=== PATIENT | female | born 1935 | race Caucasian/White ===

== ENCOUNTER 2018-10-01 07:56 | Inpatient (IN) | payer OTHER ==
[~2018-10-01] VITALS: Ht 157.5 cm; Wt 48.5 kg
[~2018-10-01 07:56] MED LIST: ACET325 PO; ALBU90OI INH; Amlodipine-Ben1 EAC1 PO; Bactrim Ds Tab1 EACH PO; CHOLESTEROL MED; HTN MED; HYDR1TAB94 PO; LEVFLO500 PO; LOPE2C PO; LOVA40 PO; Prednisone20 MG PO; RANI150 PO; Sulfamethoxazo1 EAC4 PO; Zofran Odt4 MG SL
[2018-10-01 09:12] LABS: BASOPHILS ABSOLUTE AUTO 0.06 K/mm3 (0.00-0.23); BASOPHILS PERCENT AUTO 0 % (0-2); EOSINOPHILS PERCENT AUTO 0 % (0-6); Hematocrit 43.4 % (33.0-51.0); Hemoglobin 13.5 g/dL (11.5-16.0); IMMATURE GRAN ABSOLUTE AUTO 0.08 K/mm3 (0.00-0.10); IMMATURE GRAN PERCENT AUTO 1 % (0-1); LYMPHOCYTES ABSOLUTE AUTO 0.74 K/mm3 (0.84-5.20); LYMPHOCYTES PERCENT AUTO 5 % (21-46); MONOCYTES ABSOLUTE AUTO 1.36 K/mm3 (0.16-1.47); MONOCYTES PERCENT AUTO 9 % (4-13); Mean Corpuscular HGB 28.5 pg (26.0-34.0); Mean Corpuscular HGB Conc 31.1 g/dL (31.5-36.5); Mean Corpuscular Volume 92 fL (80-100); Mean Platelet Volume 10.6 fL (9.1-12.4); NEUTROPHILS ABSOLUTE AUTO 12.97 K/mm3 (1.96-9.15); NEUTROPHILS PERCENT AUTO 85 % (41-73); Platelet Count 359 K/mm3 (150-400); RDW Coefficient Variation 16.4 % (11.7-14.2); RDW Standard Deviation 55.5 fL (35.1-46.3); Red Blood Cell Count 4.74 M/mm3 (3.80-5.20); White Blood Cell Count 15.21 K/mm3 (4.00-11.30)
[2018-10-01 09:34] LABS: Troponin I <0.015 ng/mL (0.000-0.040)
[2018-10-01 09:50] LABS: Alanine Aminotransfer (ALT/SGP 25 U/L (12-78); Albumin, Blood 2.9 g/dL (3.4-5.0); Albumin/Globulin Ratio 0.6 (0.8-1.8); Alk Phos 236 U/L (50-136); Anion Gap 8 mmol/L (6-16); Aspartate Aminotrans (AST/SGOT 27 U/L (12-37); Bilirubin, Total 0.9 mg/dL (0.1-1.0); Blood Urea Nitrogen 14 mg/dL (8-24); Bun/Creatinine Ratio 30.2 (12.0-20.0); CO2, Blood 26 mmol/L (21-32); Chloride, Blood 106 mmol/L (98-108); Creatinine, Blood 0.46 mg/dL (0.40-1.00); Globulin, Blood 4.9 g/dL (2.2-4.0); Glomerular Filtration Rate >60 (60-); Glucose, Blood 124 mg/dL (70-99); Potassium, Blood 3.5 mmol/L (3.5-5.5); Sodium, Blood 140 mmol/L (136-145); Total Protein, Blood 7.8 g/dL (6.4-8.2)
[2018-10-01] MEDS ORDERED: LATANOPROST2.5 ML BOTHEYES (09:56)
[2018-10-01] MEDS ORDERED: Ventolin/Prove6.7 GM INH (09:57)
--- NOTE | 2018-10-01 15:12 | NUR ---
Pt was sitting up in bed and appeared well taken care of. 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 Pt moved to [place] to get away from the busyness of the town. Pt has no family. Pt lives at [facility], but is hoping to move to a place of her own soon. Verbal prayer was offered on behalf of the pt. Pt was affiliated with a [place] [employer]. Pt verbalized gratitude for the PC support. I will remain available.
--- NOTE | 2018-10-01 16:19 | NUR ---
PT ARRIVED TO THE MEDICAL FLOOR FROM THE ER AROUND 1150 VIA WHEELCHAIR, A/OX3, PLEASANT AND COOPERATIVE, THE PT IS UP IND, THE PT IS MILDLY SOB WITH ACTIVITY, PT IS ON 2L/MIN O2 AT THIS TIME, APPEARS TO BE BREATHING EASILY AT REST, PT ORIENTED TO THE ROOM LAYOUT AND CALL SYSTEM, THE CALL LIGHT IS IN REACH BED IN LOW POSITION, WILL CONTINUE TO MONITOR AND ASSESS FOR CHANGES, CONTINUOS BIOX ON
[2018-10-02 05:18] LABS: BASOPHILS ABSOLUTE AUTO 0.05 K/mm3 (0.00-0.23); BASOPHILS PERCENT AUTO 0 % (0-2); EOSINOPHILS PERCENT AUTO 0 % (0-6); Hematocrit 39.7 % (33.0-51.0); IMMATURE GRAN ABSOLUTE AUTO 0.16 K/mm3 (0.00-0.10); IMMATURE GRAN PERCENT AUTO 1 % (0-1); LYMPHOCYTES PERCENT AUTO 8 % (21-46); MONOCYTES ABSOLUTE AUTO 0.91 K/mm3 (0.16-1.47); MONOCYTES PERCENT AUTO 5 % (4-13); Mean Corpuscular HGB 27.9 pg (26.0-34.0); Mean Corpuscular HGB Conc 30.2 g/dL (31.5-36.5); Mean Corpuscular Volume 92 fL (80-100); Mean Platelet Volume 10.8 fL (9.1-12.4); NEUTROPHILS ABSOLUTE AUTO 14.74 K/mm3 (1.96-9.15); NEUTROPHILS PERCENT AUTO 86 % (41-73); Platelet Count 352 K/mm3 (150-400); RDW Coefficient Variation 16.3 % (11.7-14.2); RDW Standard Deviation 55.1 fL (35.1-46.3); White Blood Cell Count 17.16 K/mm3 (4.00-11.30)
[2018-10-02 06:15] LABS: Alanine Aminotransfer (ALT/SGP 28 U/L (12-78); Albumin, Blood 2.3 g/dL (3.4-5.0); Albumin/Globulin Ratio 0.5 (0.8-1.8); Alk Phos 235 U/L (50-136); Anion Gap 7 mmol/L (6-16); Aspartate Aminotrans (AST/SGOT 27 U/L (12-37); Bilirubin, Total 0.4 mg/dL (0.1-1.0); Blood Urea Nitrogen 23 mg/dL (8-24); Bun/Creatinine Ratio 44.5 (12.0-20.0); CO2, Blood 27 mmol/L (21-32); Calcium, Blood 8.6 mg/dL (8.5-10.1); Chloride, Blood 109 mmol/L (98-108); Creatinine, Blood 0.52 mg/dL (0.40-1.00); Globulin, Blood 4.5 g/dL (2.2-4.0); Glomerular Filtration Rate >60 (60-); Glucose, Blood 93 mg/dL (70-99); Magnesium, Blood 2.2 mg/dL (1.6-2.4); Potassium, Blood 4.3 mmol/L (3.5-5.5); Sodium, Blood 143 mmol/L (136-145); Total Protein, Blood 6.8 g/dL (6.4-8.2)
--- NOTE | 2018-10-02 07:34 | NUR ---
SHIFT SUMMARY: PT A&O X 4, INDEPENDENT IN ROOM. ON 2L VIA NC AND CONT PULSE OXIMETRY. NORMALLY, PT IS ON RA. PT DENIES SOB, HOWEVER O2 DROPS DOWN INTO THE 80s WITHOUT 02 THERAPY. ON 2L VIA NC, PT IS SATTING IN THE 90s. PT HAVIUNG THICK, WHITE SECRETIONS c A FREQUENT LOOSE, HARSH COUGH. PT DENIES PAIN, VSS. LACTIC ACID WNL THIS AM, NO ACUTE SIGNS OF SEPSIS ASSESSED. WILL CONT TO MONITOR AND PROVIDE CARE UNTIL PRESUMED BY ONCOMING RN.
--- NOTE | 2018-10-02 18:26 | NUR ---
SHIFT SUMMARY: NO ACUTE CHANGES TO REPORT THIS SHIFT. PT A&O; [place] CALM AND COOEPRATIVE WITH CARE. MEDICATED FOR PAIN PER EMAR. 2L O2 VIA NC; NO O2 USE AT HOME; LUNGS COARSE & WHEEZY. IV & PO ABX CONTINUING. WCTM.
--- NOTE | 2018-10-03 06:37 | NUR ---
*SHIFT SUMMARY* PATIENT IS ALERT AND ORIENTED. PATIENT SLEPT THROUGHOUT MOST OF THE NIGHT. PATIENT USES CALL LIGHT APPROPRIATELY. PATIENT IS CONTINENT, PATIENT IS A SBA TO BATHROOM. PATIENT USES OXYGEN AT 2L. PATIENT TAKES PILLS WHOLE WITH WATER. PATIENT HAS NO NEW CHANGES TO STATUS. BED ALARM ON, BED LOWERED AND LOCKED WITH CALL LIGHT WITHIN REACH.
--- NOTE | 2018-10-03 08:13 | NUR ---
CODE STATUS: DNR VERIFIED WITH AV KUNZ RN. PT AGREES WITH THIS. PURPLE BAND PLACED ON LEFT WRIST.
--- NOTE | 2018-10-03 12:42 | NUR ---
[facility]: PER DR. GUNN'S REQUEST AND PATIENT'S PERMISSION, THIS RN CALLED AND UPDATED STAFF AT THE [facility] THAT PT IS STILL IN THE HOSPITAL BUT PLANS TO RETURN WHEN RELEASED. STAFF AT [facility] VERBALIZED UNDERSTANDING.
--- NOTE | 2018-10-03 13:42 | NUR ---
PARTIAL MEDICATION: PATIENT RECEIVED PARTIAL DOSE OF 10/02 AZITHROMYCIN IV. DUE TO MULTIPLE DISTAL OCCLUSIONS CAUSED BY PATIENT REPEATEDLY BENDING ARM AND CAUSING DISTAL OCCLUSIONS, FULL DOSE OF MEDICATION WAS NOT ADMINISTERED. PATIENT EDUCATED ON NEED TO KEEP ARM STRAIGHT WHILE IV MEDICATIONS ARE INFUSING.
--- NOTE | 2018-10-03 17:07 | NUR ---
SHIFT SUMMARY: A&O X4. UP WITH SBA. COUGH PRODUCTIVE OF THICK, GREEN SPUTUM. SATS IN THE MID 90'S ON 1 LPM VIA NC. CONTINUING TO WEAN O2. PT HOPEFUL FOR DISCHARGE BACK TO [facility] TOMORROW. VSS. CALL LIGHT IN REACH. WILL CONTINUE TO MONITOR AND REPORT TO ONCOMING RN.
--- NOTE | 2018-10-04 05:30 | NUR ---
*SHIFT SUMMARY* PATIENT IS ALERT AND ORIENTED. PATIENT IS SBA TO BATHROOM. PATIENT USES CALL LIGHT APPROPRIATELY. PATIENT WAS ON ROOM AIR THROUGHOUT MOST OF THE NIGHT. PATIENT WAS PLACED ON 1L OF OXYGEN TO KEEP SATS ABOVE 92 ORDERED. PATIENT SLEPT MOST OF THE NIGHT. NO NEW CHANGES IN PATIENTS CONDITION. CALL LIGHT WITHIN REACH, BED LOWERED AND LOCKED WITH ALARM ON.
--- NOTE | 2018-10-04 19:38 | NUR ---
SHIFT SUMMARY: NO ACUTE CHANGES TO REPORT THIS SHIFT. PT A&O; [place]; CALM AND COOPERATIVE WITH CARE. MEDICATED FOR PAIN PER EMAR. PATIENT SLEEPING T/O SHIFT. LUNGS COARSE; 1L O2 IN PLACE - NO O2 USE AT BASELINE. IV ABX CONTINUING. REPORT GIVEN TO ONCOMING RN.
[2018-10-05 05:13] LABS: BASOPHILS ABSOLUTE AUTO 0.09 K/mm3 (0.00-0.23); BASOPHILS PERCENT AUTO 1 % (0-2); EOSINOPHILS PERCENT AUTO 0 % (0-6); Hematocrit 41.8 % (33.0-51.0); Hemoglobin 13.1 g/dL (11.5-16.0); IMMATURE GRAN ABSOLUTE AUTO 0.31 K/mm3 (0.00-0.10); IMMATURE GRAN PERCENT AUTO 4 % (0-1); LYMPHOCYTES PERCENT AUTO 21 % (21-46); MONOCYTES ABSOLUTE AUTO 0.84 K/mm3 (0.16-1.47); MONOCYTES PERCENT AUTO 10 % (4-13); Mean Corpuscular HGB 27.9 pg (26.0-34.0); Mean Corpuscular HGB Conc 31.3 g/dL (31.5-36.5); NEUTROPHILS ABSOLUTE AUTO 5.75 K/mm3 (1.96-9.15); NEUTROPHILS PERCENT AUTO 65 % (41-73); Platelet Count 355 K/mm3 (150-400); RDW Coefficient Variation 15.5 % (11.7-14.2); RDW Standard Deviation 50.4 fL (35.1-46.3); White Blood Cell Count 8.79 K/mm3 (4.00-11.30)
[2018-10-05 05:14] LABS: Mean Corpuscular Volume 89 fL (80-100)
[2018-10-05 05:37] LABS: Alanine Aminotransfer (ALT/SGP 22 U/L (12-78); Albumin, Blood 2.4 g/dL (3.4-5.0); Albumin/Globulin Ratio 0.5 (0.8-1.8); Alk Phos 190 U/L (50-136); Anion Gap 6 mmol/L (6-16); Aspartate Aminotrans (AST/SGOT 16 U/L (12-37); Bilirubin, Total 0.4 mg/dL (0.1-1.0); Blood Urea Nitrogen 10 mg/dL (8-24); Bun/Creatinine Ratio 22.6 (12.0-20.0); CO2, Blood 28 mmol/L (21-32); Calcium, Blood 8.6 mg/dL (8.5-10.1); Chloride, Blood 103 mmol/L (98-108); Creatinine, Blood 0.44 mg/dL (0.40-1.00); Globulin, Blood 4.5 g/dL (2.2-4.0); Glomerular Filtration Rate >60 (60-); Glucose, Blood 101 mg/dL (70-99); Potassium, Blood 4.2 mmol/L (3.5-5.5); Sodium, Blood 137 mmol/L (136-145); Total Protein, Blood 6.9 g/dL (6.4-8.2)
--- NOTE | 2018-10-05 06:35 | NUR ---
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 PT has cont pulse oximetry and maintained sats most of night on 1 l or room air but did desat to 85% at rest and oxygen was required to get sat to 90%. She is homeless and lives at homeless senior living during night. has no family listed appears to lack siocial support. Flat affect, up in room independent but has hx of falls. very hard of hearing but able to communicate. has scheduled ultram as well as prn and no prn requests. immigration services officer referral made due to homeless status.
--- NOTE | 2018-10-05 16:56 | NUR ---
SHIFT SUMMARY PATIENT A&O X4, INDEPENDENT IN THE ROOM. OXYGEN ON 1L NC SATS REMAINING <90%. RESP E/U, PATIENT DENIES ANY SOB OR NAUSEA. HAD SOME COMPLAINTS OF LOWER BACK PAIN, RN MEDICATED X2 WITH SCHEDULED TRAMADOL 50 MG. PATIENT SLEPT ON AND OFF THROUGHOUT THE SHIFT. HAS HAD A CHRONIC COUGH WITH SOME WHITE SPUTUM PRODUCTION. BED IS IN THE LOWEST POSITION, CALL LIGHT WITHIN REACH. NO ACUTE CHANGES. RN WILL CONTINUE TO MONITOR.
--- NOTE | 2018-10-06 04:02 | NUR ---
SHIFT SUMMARY PT SLEEPING, RESTING QUIETLY DURING SHIFT REPORT, WITH TV ON. PT WOKE EASILY FOR CARE. PLEASANT AND CO-OP. DENIED NEEDS. PER SHIFT REPORT, PT WAS LIVING AT HOMELESS JAIL. IS UP INDEPENDANTLY NEEDED TO BTHRM. ADMITTED FOR PNM; IN CONTACT ISOLATION FOR HX MRSA IN SPUTUM AND WOUND. LUNGS T/O COARSE THRU OUT. DECLINED SCHEDULED ULTRAM AT HS, "I DON'T HAVE ANY PAIN". CALL LT IN REACH.
[2018-10-06] MEDS ORDERED: GUAI600T33 PO (14:11)
[2018-10-06] MEDS ORDERED: CHOL10002 PO (14:13)
[2018-10-06] MEDS ORDERED: AZIT500 PO (14:14)
[2018-10-06] MEDS ORDERED: CLINDAMYCIN PO (14:21)
--- NOTE | 2018-10-06 14:59 | NUR ---
DISCHARGE PT A/O X4, PLEASANT AFFECT THIS AM, STATE FEELING IMPROVED, HOPEFUL TO GO HOME. STATE CONTINUING COUGH & SOME SOB W EXERTION. LUNGS VERY DECREASED HOWEVER CLEAR. HR IRREG @ X'S TOMMY 50'S-80'S. DR GUNN IN TO SEEHER STATE SHE MAY GO HOME TODAY, PLACE ORDERS. RT UP FOR HOME O2 EVAL, STATE SHE WILL NOT NEED OXYGEN. SOC SERV IN TO SEE PT R/T HOMELESS STATUS. PT IS LIVING IN HER CAR DURING DAY & STAYS @ [facility] IN [place]. SHE IS ON A WAITING LIST FOR HOUSING. STATE OK TO CONTINUE D/C. IV D/C INTACT. SCRIPTS FAXED TO [facility]/REQUEST, HARD COPY ULTRAM SCRIPT TO PT WITH D/C INSTRUCT. W/C ESCORT TO HER CAR PROVIDED. SHE IS PLEASANT/APPRECIATIVE.
== END 2018-10-06 14:59 | disposition home or self-care (01) | DRG 189 ==
LOC: ER 07:56 → MEDS 10:37 → ER 11:26 → MEDS 11:47
PROVIDERS: Internal Medicine; ADMIT Internal Medicine
DX: J96.01 Acute respiratory failure with hypoxia (principal); J18.9 Pneumonia, unspecified organism; M80.08XA Age-related osteoporosis with current pathological fracture, vertebra(e), initial encounter for fracture; J42 Unspecified chronic bronchitis; E78.5 Hyperlipidemia, unspecified; I10 Essential (primary) hypertension; Z59.0 Homelessness; Z85.3 Personal history of malignant neoplasm of breast; F17.210 Nicotine dependence, cigarettes, uncomplicated
CPT/HCPCS: 36415; 71046; 72100; 80053; 83605; 83735; 84484; 85025; 87040; 87081; 93005; 93010; 94640; 94761; 94762; 96365; 96367; 96375; 99285-25; J0456; J0696; J1644; J2930; J7050

== ENCOUNTER 2018-12-30 07:22 | Emergency (ER) | payer OTHER ==
[~2018-12-30] VITALS: Ht 154.9 cm; Wt 49.9 kg
[~2018-12-30 07:22] MED LIST changes: +AZIT500 PO; +CHOL10002 PO; +CLINDAMYCIN PO; +GUAI600T33 PO; +LATANOPROST2.5 ML BOTHEYES; +Ventolin/Prove6.7 GM INH
[2018-12-30] MEDS ORDERED: ALBU90OI61 (07:47)
[2018-12-30] MEDS ORDERED: Prednisone20 MG PO (08:42)
[2018-12-30] MEDS ORDERED: Zithromax250 MG PO (08:42)
[2018-12-30] MEDS ORDERED: BENZ100A PO (08:42)
== END 2018-12-30 09:25 | disposition home or self-care (01) ==
LOC: ER 07:22
DX: J44.1 Chronic obstructive pulmonary disease with (acute) exacerbation (principal); E78.5 Hyperlipidemia, unspecified; I10 Essential (primary) hypertension; F17.210 Nicotine dependence, cigarettes, uncomplicated
CPT/HCPCS: 71046; 94640; 99283-25

== ENCOUNTER 2019-01-04 06:54 | Inpatient (IN) | payer OTHER ==
[~2019-01-04] VITALS: Ht 154.9 cm; Wt 47.2 kg
[~2019-01-04 06:54] MED LIST changes: +ALBU90OI61 INH; +BENZ100A PO; +Zithromax250 MG PO
[2019-01-04 07:22] LABS: BASOPHILS ABSOLUTE AUTO 0.07 K/mm3 (0.00-0.23); BASOPHILS PERCENT AUTO 1 % (0-2); EOSINOPHILS PERCENT AUTO 0 % (0-6); Hematocrit 52.3 % (33.0-51.0); Hemoglobin 16.3 g/dL (11.5-16.0); IMMATURE GRAN PERCENT AUTO 1 % (0-1); LYMPHOCYTES ABSOLUTE AUTO 1.04 K/mm3 (0.84-5.20); LYMPHOCYTES PERCENT AUTO 7 % (21-46); MONOCYTES ABSOLUTE AUTO 0.96 K/mm3 (0.16-1.47); MONOCYTES PERCENT AUTO 6 % (4-13); Mean Corpuscular HGB 28.1 pg (26.0-34.0); Mean Corpuscular HGB Conc 31.2 g/dL (31.5-36.5); Mean Corpuscular Volume 90 fL (80-100); Mean Platelet Volume 10.4 fL (9.1-12.4); NEUTROPHILS ABSOLUTE AUTO 13.02 K/mm3 (1.96-9.15); NEUTROPHILS PERCENT AUTO 85 % (41-73); Platelet Count 430 K/mm3 (150-400); RDW Coefficient Variation 15.1 % (11.7-14.2); RDW Standard Deviation 49.8 fL (35.1-46.3); White Blood Cell Count 15.29 K/mm3 (4.00-11.30)
[2019-01-04 07:45] LABS: Alanine Aminotransfer (ALT/SGP 29 U/L (12-78); Albumin, Blood 3.3 g/dL (3.4-5.0); Albumin/Globulin Ratio 0.6 (0.8-1.8); Alk Phos 200 U/L (50-136); Anion Gap 9 mmol/L (6-16); Aspartate Aminotrans (AST/SGOT 23 U/L (12-37); Bilirubin, Total 0.8 mg/dL (0.1-1.0); Blood Urea Nitrogen 17 mg/dL (8-24); Bun/Creatinine Ratio 36.2 (12.0-20.0); CO2, Blood 30 mmol/L (21-32); Calcium, Blood 9.6 mg/dL (8.5-10.1); Chloride, Blood 104 mmol/L (98-108); Creatinine, Blood 0.47 mg/dL (0.40-1.00); Globulin, Blood 5.3 g/dL (2.2-4.0); Glomerular Filtration Rate >60 (60-); Glucose, Blood 127 mg/dL (70-99); Potassium, Blood 3.3 mmol/L (3.5-5.5); Sodium, Blood 143 mmol/L (136-145); Total Protein, Blood 8.6 g/dL (6.4-8.2)
--- NOTE | 2019-01-04 14:00 | NUR ---
PT ARRIVED TO ROOM 335 FROM ER VIA GURNEY. PT ABLE TO STAND AND TRANSFER TO BED. IVF INFUSING ON ARRIVAL. PT ORIENTED TO ROOM AND CALL SYSTEM. OXYGEN VIA 2LNC IN PLACE, SATS AT 93%. BED IN LOWEST POSITION AND CALL NIELSEN IN REACH, WILL CONTINUE TO MONITOR.
--- NOTE | 2019-01-04 19:08 | NUR ---
NO ACUTE CHANGES NOTED SINCE PT ARRIVAL TO ROOM. WILL CONTINUE TO MONITOR AND REPORT TO ONCOMING RN
--- NOTE | 2019-01-05 03:58 | NUR ---
SHIFT SUMMARY THE PT WAS ADMITTED FOR RLL PNEUMONIA. ON CONTACT ISOLATION FOR HISTORY OF MRSA IN THE NARES AND THROAT. LIMITED CODE-MEDICATIONS, CHEST COMPRESSION, AND DEFIBRILLATION. LOVENOX FOR DVT PROPHYLAXIS. 1 PERSON ASSIST. TAKES MEDICATIONS WHOLE WITH WATER. 20 G IV TO L AC. 2L O2 VIA NC. THE PT IS HOMELESS AND LIVES IN HER CAR PER REPORT. THE PT IS ABLE TO SLEEP AT THE [facility] BUT STATED THAT SHE CAN NO LONGER STANY THERE. THE PT IS [place] AND NEEDS A SPUTUM SAMPLE. THE PT IS ALERT, ORIENTED, PLEASENT, AND COOPERATIVE WITH CARE. THE PT HAS NOTED TO HAVE A COUGH THROUGHOUT THE NIGHT. UNABLE TO OBTAIN A PROPER SAMPLE FOR SPUTUM COLLECTION SO FAR THIS SHIFT. WILL CONTINUE TO ATTEMPT. THE PT APPEARS TO BE SLEEPING COMFORTABLY AT THIS TIME WITH NO APPARENT SIGNS OF ACUTE DISTRESS. ABLE TO MAKE NEEDS KNOWN AND CALL LIGHT IN REACH.
[2019-01-05 05:54] LABS: Alanine Aminotransfer (ALT/SGP 24 U/L (12-78); Albumin, Blood 2.5 g/dL (3.4-5.0); Albumin/Globulin Ratio 0.6 (0.8-1.8); Alk Phos 140 U/L (50-136); Anion Gap 4 mmol/L (6-16); Aspartate Aminotrans (AST/SGOT 19 U/L (12-37); Bilirubin, Total 0.6 mg/dL (0.1-1.0); Blood Urea Nitrogen 15 mg/dL (8-24); CO2, Blood 29 mmol/L (21-32); Calcium, Blood 8.8 mg/dL (8.5-10.1); Chloride, Blood 111 mmol/L (98-108); Creatinine, Blood 0.39 mg/dL (0.40-1.00); Globulin, Blood 4.4 g/dL (2.2-4.0); Glomerular Filtration Rate >60 (60-); Glucose, Blood 103 mg/dL (70-99); Potassium, Blood 4.4 mmol/L (3.5-5.5); Sodium, Blood 144 mmol/L (136-145); Total Protein, Blood 6.9 g/dL (6.4-8.2)
--- NOTE | 2019-01-05 17:21 | NUR ---
PT REPORTING RT SIDED RIB PAIN TODAY AND SHE RECEIVED PO NAPROXEN. RELIEF REPORTED, NO FURTHER C/O PAIN AT THIS TIME. NO ACUTE CHANGES NOTED THIS SHIFT, WILL CONTINUE TO MONITOR AND REPORT TO ONCOMING RN.
--- NOTE | 2019-01-06 03:54 | NUR ---
SHIFT SUMMARY NO APPARENT ACUTE CHANGES NOTED SO FAR THIS SHIFT. PT TOOK NIGHT MEDS WELL. PT NOTED TO HAVE SOME ADDITIONAL COUGH SO FAR THIS SHIFT BUT STILL UNABLE TO OBTAIN SPUTUM SAMPLE AT THIS TIME. PT HAS APPEARED TO SLEEP COMFORTABLY MOST OF THE SHIFT. ABLE TO MAKE NEEDS KNOWN AND CALL LIGHT IN REACH.
[2019-01-06 06:34] LABS: BASOPHILS ABSOLUTE AUTO 0.04 K/mm3 (0.00-0.23); BASOPHILS PERCENT AUTO 0 % (0-2); EOSINOPHILS ABSOLUTE AUTO 0.01 K/mm3 (0.00-0.68); EOSINOPHILS PERCENT AUTO 0 % (0-6); Hematocrit 43.7 % (33.0-51.0); Hemoglobin 13.5 g/dL (11.5-16.0); IMMATURE GRAN ABSOLUTE AUTO 0.29 K/mm3 (0.00-0.10); IMMATURE GRAN PERCENT AUTO 2 % (0-1); LYMPHOCYTES ABSOLUTE AUTO 1.98 K/mm3 (0.84-5.20); LYMPHOCYTES PERCENT AUTO 12 % (21-46); MONOCYTES ABSOLUTE AUTO 1.25 K/mm3 (0.16-1.47); MONOCYTES PERCENT AUTO 8 % (4-13); Mean Corpuscular HGB 28.1 pg (26.0-34.0); Mean Corpuscular HGB Conc 30.9 g/dL (31.5-36.5); Mean Corpuscular Volume 91 fL (80-100); Mean Platelet Volume 10.4 fL (9.1-12.4); NEUTROPHILS ABSOLUTE AUTO 12.97 K/mm3 (1.96-9.15); NEUTROPHILS PERCENT AUTO 78 % (41-73); Platelet Count 390 K/mm3 (150-400); RDW Coefficient Variation 15.1 % (11.7-14.2); RDW Standard Deviation 50.3 fL (35.1-46.3); Red Blood Cell Count 4.81 M/mm3 (3.80-5.20); White Blood Cell Count 16.54 K/mm3 (4.00-11.30)
[2019-01-06 11:12] LABS: Vancomycin, Trough 3.5 ug/mL (5.0-10.0)
--- NOTE | 2019-01-06 18:18 | NUR ---
SHIFT SUMMARY PT VERY HARD OF HEARING. ASKED SEVERAL TIMES IF ANYONE COULD GIVE HER SOMETHING TO PEP HER UP BECAUSE SHE DOESN'T HAVE ANY ENERGY. HAS DENIED ANY PAIN TODAY. UP TO BATHROOM WITH 1 PERSON ASSIST. OCC COUGH HEARD BUT NO PRODUCTION NOTED.
--- NOTE | 2019-01-07 03:50 | NUR ---
SHIFT SUMMARY PT VERY [place]. SLEPT WELL THROUGH MOST OF THE SHIFT. GETS UP TO THE RESTROOM WITH EASY SBA. PT DENIES PAIN AND HAS NO NONVERBAL S/S OF PAIN. LUNG SOUNDS CONTINUE TO SOUND COARSE THROUGHOUT. MOIST PRODUCTIVE COUGH. ON 3 L O2 NC WITH O2 SATS IN THE MID 90'S. NO SOB NOTED. VSS. NO ACUTE CHANGES THIS EVENING.
[2019-01-07 05:14] LABS: BASOPHILS ABSOLUTE AUTO 0.06 K/mm3 (0.00-0.23); BASOPHILS PERCENT AUTO 1 % (0-2); EOSINOPHILS ABSOLUTE AUTO 0.02 K/mm3 (0.00-0.68); EOSINOPHILS PERCENT AUTO 0 % (0-6); Hematocrit 44.1 % (33.0-51.0); Hemoglobin 13.5 g/dL (11.5-16.0); IMMATURE GRAN ABSOLUTE AUTO 0.34 K/mm3 (0.00-0.10); IMMATURE GRAN PERCENT AUTO 3 % (0-1); LYMPHOCYTES ABSOLUTE AUTO 1.77 K/mm3 (0.84-5.20); LYMPHOCYTES PERCENT AUTO 14 % (21-46); MONOCYTES ABSOLUTE AUTO 0.93 K/mm3 (0.16-1.47); MONOCYTES PERCENT AUTO 7 % (4-13); Mean Corpuscular HGB 27.8 pg (26.0-34.0); Mean Corpuscular HGB Conc 30.6 g/dL (31.5-36.5); Mean Corpuscular Volume 91 fL (80-100); Mean Platelet Volume 10.5 fL (9.1-12.4); NEUTROPHILS ABSOLUTE AUTO 9.82 K/mm3 (1.96-9.15); NEUTROPHILS PERCENT AUTO 76 % (41-73); Platelet Count 380 K/mm3 (150-400); RDW Standard Deviation 49.4 fL (35.1-46.3); Red Blood Cell Count 4.85 M/mm3 (3.80-5.20); White Blood Cell Count 12.94 K/mm3 (4.00-11.30)
[2019-01-07 05:46] LABS: Anion Gap 4 mmol/L (6-16); Blood Urea Nitrogen 14 mg/dL (8-24); Bun/Creatinine Ratio 35.5 (12.0-20.0); CO2, Blood 32 mmol/L (21-32); Calcium, Blood 8.7 mg/dL (8.5-10.1); Chloride, Blood 102 mmol/L (98-108); Creatinine, Blood 0.39 mg/dL (0.40-1.00); Glomerular Filtration Rate >60 (60-); Glucose, Blood 97 mg/dL (70-99); Potassium, Blood 4.4 mmol/L (3.5-5.5); Sodium, Blood 138 mmol/L (136-145)
[2019-01-07 11:03] LABS: Vancomycin, Trough 10.5 ug/mL (5.0-10.0)
[2019-01-07 13:30] LABS: Adenovirus Not Detected (NOT DETECT); Coronavirus 229E Not Detected (NOT DETECT); Coronavirus HKU1 Not Detected (NOT DETECT)
[2019-01-07 13:31] LABS: Bordetella pertussis Not Detected (NOT DETECT); Chlamydophila pneumoniae Not Detected (NOT DETECT); Coronavirus NL63 Not Detected (NOT DETECT); Coronavirus OC43 Not Detected (NOT DETECT); Human Metapneumovirus Not Detected (NOT DETECT); Human Rhinovirus/Enterovirus Not Detected (NOT DETECT); Influenza A Not Detected (NOT DETECT); Influenza A/2009-H1 Not Detected (NOT DETECT); Influenza A/H1 Not Detected (NOT DETECT); Influenza A/H3 Not Detected (NOT DETECT); Influenza B Not Detected (NOT DETECT); Mycoplasma pneumoniae Not Detected (NOT DETECT); Parainfluenza Virus 1 Not Detected (NOT DETECT); Parainfluenza Virus 2 Not Detected (NOT DETECT); Parainfluenza Virus 3 Not Detected (NOT DETECT); Parainfluenza Virus 4 Not Detected (NOT DETECT); Respiratory Syncytial Virus Not Detected (NOT DETECT)
--- NOTE | 2019-01-07 19:52 | NUR ---
SHIFT SUMMARY AWAKE AND ALERT THROUGH DAY. VERY HARD OF HEARING. ATTEMPTED TO WEAN PT OFF O2 BUT SATS DOWN TO 86% ON RA. UP TO 88% ON 1L/M AND UP TO 93% ON 2L/M. DENIES SOB WITH EXERTION OR RESP DISTRESS. STATES SHE LIKES INHALORS BETTER THAN NEBULIZERS.
[2019-01-08 05:35] LABS: BASOPHILS ABSOLUTE AUTO 0.04 K/mm3 (0.00-0.23); BASOPHILS PERCENT AUTO 0 % (0-2); EOSINOPHILS ABSOLUTE AUTO 0.01 K/mm3 (0.00-0.68); EOSINOPHILS PERCENT AUTO 0 % (0-6); Hematocrit 44.9 % (33.0-51.0); Hemoglobin 13.8 g/dL (11.5-16.0); IMMATURE GRAN ABSOLUTE AUTO 0.21 K/mm3 (0.00-0.10); IMMATURE GRAN PERCENT AUTO 2 % (0-1); LYMPHOCYTES ABSOLUTE AUTO 1.74 K/mm3 (0.84-5.20); LYMPHOCYTES PERCENT AUTO 16 % (21-46); MONOCYTES ABSOLUTE AUTO 0.89 K/mm3 (0.16-1.47); MONOCYTES PERCENT AUTO 8 % (4-13); Mean Corpuscular HGB Conc 30.7 g/dL (31.5-36.5); Mean Corpuscular Volume 91 fL (80-100); NEUTROPHILS ABSOLUTE AUTO 7.84 K/mm3 (1.96-9.15); NEUTROPHILS PERCENT AUTO 73 % (41-73); Platelet Count 331 K/mm3 (150-400); RDW Standard Deviation 49.4 fL (35.1-46.3); Red Blood Cell Count 4.92 M/mm3 (3.80-5.20); White Blood Cell Count 10.73 K/mm3 (4.00-11.30)
[2019-01-08 05:59] LABS: Anion Gap 4 mmol/L (6-16); Blood Urea Nitrogen 16 mg/dL (8-24); Bun/Creatinine Ratio 38.2 (12.0-20.0); CO2, Blood 35 mmol/L (21-32); Calcium, Blood 8.6 mg/dL (8.5-10.1); Chloride, Blood 101 mmol/L (98-108); Creatinine, Blood 0.42 mg/dL (0.40-1.00); Glomerular Filtration Rate >60 (60-); Glucose, Blood 81 mg/dL (70-99); Potassium, Blood 4.1 mmol/L (3.5-5.5); Sodium, Blood 140 mmol/L (136-145)
--- NOTE | 2019-01-08 07:24 | NUR ---
SHIFT SUMMARY PT IS A 83 Y/O FEMALE, ADMITTED FOR PNEUMONIA. SHE IS A&O X 3, THOUGH VERY HARD OF HEARING. SHE DENIED ANY COMPLAINTS OF PAIN OR NAUSEA, BUT DID REPORT SOME MILD SHORTNESS OF BREATH. SHE DID REFUSE BREATHING TREATMENTS, SHE SAID THAT THE "INHALERS WORK BETTER". VITALS REMAINED STABLE. NO OTHER ACUTE CHANGES IN PT CONDITION NOTED. WILL CONTINUE TO MONITOR AND TREAT PER EMAR UNTIL HAND OFF TO DAY SHIFT.
[2019-01-08] MEDS ORDERED: LEVFLO500 PO (11:55)
== END 2019-01-08 12:04 | disposition home or self-care (01) | DRG 871 ==
LOC: ER 06:54 → ERHOLD 08:49 → MEDS 08:49 → ENPENDDIS 01-08 11:20 → MEDS 01-08 12:04
PROVIDERS: Emergency Medicine; ADMIT Hospitalist
DX: A41.9 Sepsis, unspecified organism (principal); J15.212 Pneumonia due to Methicillin resistant Staphylococcus aureus; J96.01 Acute respiratory failure with hypoxia; J44.0 Chronic obstructive pulmonary disease with (acute) lower respiratory infection; J44.1 Chronic obstructive pulmonary disease with (acute) exacerbation; E78.5 Hyperlipidemia, unspecified; I10 Essential (primary) hypertension; M54.5 Low back pain; Z85.3 Personal history of malignant neoplasm of breast; G89.29 Other chronic pain; F17.210 Nicotine dependence, cigarettes, uncomplicated
CPT/HCPCS: 36415; 71046; 80048; 80053; 80202; 83605; 83880; 84145; 85025; 87040; 87070; 87077; 87147; 87186; 87205; 87486; 87581; 87633; 87798; 93005; 93010; 94640; 94644; 94667; 94760; 94761; 96365; 96366; 96367; 96372-59; 96375; 99285-25; J0456; J0696; J1650; J2930; J3370; J3480; J7050; J7512

== ENCOUNTER 2019-01-13 06:04 | Emergency (ER) | payer OTHER ==
[~2019-01-13] VITALS: Ht 154.9 cm; Wt 43.1 kg
[2019-01-13 06:40] LABS: BASOPHILS ABSOLUTE AUTO 0.07 K/mm3 (0.00-0.23); BASOPHILS PERCENT AUTO 1 % (0-2); EOSINOPHILS ABSOLUTE AUTO 0.02 K/mm3 (0.00-0.68); EOSINOPHILS PERCENT AUTO 0 % (0-6); Hematocrit 50.1 % (33.0-51.0); Hemoglobin 15.9 g/dL (11.5-16.0); IMMATURE GRAN PERCENT AUTO 1 % (0-1); LYMPHOCYTES ABSOLUTE AUTO 0.86 K/mm3 (0.84-5.20); LYMPHOCYTES PERCENT AUTO 10 % (21-46); MONOCYTES ABSOLUTE AUTO 0.77 K/mm3 (0.16-1.47); MONOCYTES PERCENT AUTO 9 % (4-13); Mean Corpuscular HGB 28.8 pg (26.0-34.0); Mean Corpuscular HGB Conc 31.7 g/dL (31.5-36.5); Mean Corpuscular Volume 91 fL (80-100); Mean Platelet Volume 10.7 fL (9.1-12.4); NEUTROPHILS ABSOLUTE AUTO 7.16 K/mm3 (1.96-9.15); NEUTROPHILS PERCENT AUTO 80 % (41-73); Platelet Count 337 K/mm3 (150-400); RDW Coefficient Variation 16.1 % (11.7-14.2); RDW Standard Deviation 51.1 fL (35.1-46.3); Red Blood Cell Count 5.53 M/mm3 (3.80-5.20); White Blood Cell Count 8.98 K/mm3 (4.00-11.30)
[2019-01-13 07:49] LABS: Alanine Aminotransfer (ALT/SGP 31 U/L (12-78); Albumin/Globulin Ratio 0.7 (0.8-1.8); Alk Phos 145 U/L (50-136); Anion Gap 9 mmol/L (6-16); Aspartate Aminotrans (AST/SGOT 28 U/L (12-37); Bilirubin, Total 0.8 mg/dL (0.1-1.0); Blood Urea Nitrogen 12 mg/dL (8-24); Bun/Creatinine Ratio 25.6 (12.0-20.0); CO2, Blood 30 mmol/L (21-32); Calcium, Blood 8.6 mg/dL (8.5-10.1); Chloride, Blood 102 mmol/L (98-108); Creatinine, Blood 0.47 mg/dL (0.40-1.00); Globulin, Blood 4.3 g/dL (2.2-4.0); Glomerular Filtration Rate >60 (60-); Glucose, Blood 120 mg/dL (70-99); Potassium, Blood 4.1 mmol/L (3.5-5.5); Sodium, Blood 141 mmol/L (136-145); Total Protein, Blood 7.3 g/dL (6.4-8.2)
[2019-01-13] MEDS ORDERED: Prednisone20 MG PO (08:16)
== END 2019-01-13 08:33 | disposition home or self-care (01) ==
LOC: ER 06:04
PROVIDERS: Emergency Medicine
DX: J44.1 Chronic obstructive pulmonary disease with (acute) exacerbation (principal); Z88.8 Allergy status to other drugs, medicaments and biological substances; Z79.899 Other long term (current) drug therapy; I10 Essential (primary) hypertension; E78.5 Hyperlipidemia, unspecified; Z85.3 Personal history of malignant neoplasm of breast; F17.210 Nicotine dependence, cigarettes, uncomplicated
CPT/HCPCS: 36415; 71046; 80053; 83605; 83880; 85025; 93005; 93010; 94640; 96374; 99284-25; J2930

== ENCOUNTER 2019-01-16 06:52 | Inpatient (IN) | payer OTHER ==
[~2019-01-16] VITALS: Ht 157.5 cm; Wt 44.9 kg
[2019-01-16] MEDS ORDERED: Amlodipine-Ben1 EAC1 PO (07:38)
[2019-01-16 07:55] LABS: BASOPHILS ABSOLUTE AUTO 0.05 K/mm3 (0.00-0.23); BASOPHILS PERCENT AUTO 1 % (0-2); EOSINOPHILS PERCENT AUTO 0 % (0-6); Hematocrit 50.4 % (33.0-51.0); Hemoglobin 15.4 g/dL (11.5-16.0); IMMATURE GRAN ABSOLUTE AUTO 0.02 K/mm3 (0.00-0.10); IMMATURE GRAN PERCENT AUTO 0 % (0-1); LYMPHOCYTES ABSOLUTE AUTO 1.17 K/mm3 (0.84-5.20); LYMPHOCYTES PERCENT AUTO 18 % (21-46); MONOCYTES ABSOLUTE AUTO 0.51 K/mm3 (0.16-1.47); MONOCYTES PERCENT AUTO 8 % (4-13); Mean Corpuscular HGB 28.2 pg (26.0-34.0); Mean Corpuscular HGB Conc 30.6 g/dL (31.5-36.5); Mean Corpuscular Volume 92 fL (80-100); Mean Platelet Volume 10.6 fL (9.1-12.4); NEUTROPHILS PERCENT AUTO 73 % (41-73); Platelet Count 396 K/mm3 (150-400); RDW Coefficient Variation 16.5 % (11.7-14.2); RDW Standard Deviation 53.7 fL (35.1-46.3); Red Blood Cell Count 5.47 M/mm3 (3.80-5.20); White Blood Cell Count 6.35 K/mm3 (4.00-11.30)
[2019-01-16 08:20] LABS: Alanine Aminotransfer (ALT/SGP 28 U/L (12-78); Albumin, Blood 3.1 g/dL (3.4-5.0); Albumin/Globulin Ratio 0.6 (0.8-1.8); Alk Phos 151 U/L (50-136); Anion Gap 6 mmol/L (6-16); Aspartate Aminotrans (AST/SGOT 36 U/L (12-37); Bilirubin, Total 0.8 mg/dL (0.1-1.0); Blood Urea Nitrogen 14 mg/dL (8-24); Bun/Creatinine Ratio 27.1 (12.0-20.0); CO2, Blood 31 mmol/L (21-32); Calcium, Blood 8.9 mg/dL (8.5-10.1); Chloride, Blood 104 mmol/L (98-108); Creatinine, Blood 0.52 mg/dL (0.40-1.00); Globulin, Blood 4.9 g/dL (2.2-4.0); Glomerular Filtration Rate >60 (60-); Glucose, Blood 96 mg/dL (70-99); Sodium, Blood 141 mmol/L (136-145); Troponin I <0.015 ng/mL (0.000-0.040)
--- NOTE | 2019-01-16 19:20 | NUR ---
SHIFT SUMMARY PT A&OX4, VSS, [place], 3.5L NC @ 94%, BIOX AT BEDSIDE. DENIES CP, DENIES SOB AT THIS TIME. AMB SBA/INDEPENDENT TO BRP. USES CALL LIGHT APPROPRIATE. DENIES N&V, RAMIREZ PO. REPORT GIVEN TO NIKI RUBIN.
[2019-01-17 05:04] LABS: BASOPHILS ABSOLUTE AUTO 0.02 K/mm3 (0.00-0.23); BASOPHILS PERCENT AUTO 0 % (0-2); EOSINOPHILS PERCENT AUTO 0 % (0-6); Hematocrit 39.9 % (33.0-51.0); Hemoglobin 12.1 g/dL (11.5-16.0); IMMATURE GRAN ABSOLUTE AUTO 0.02 K/mm3 (0.00-0.10); IMMATURE GRAN PERCENT AUTO 0 % (0-1); LYMPHOCYTES ABSOLUTE AUTO 0.95 K/mm3 (0.84-5.20); LYMPHOCYTES PERCENT AUTO 10 % (21-46); MONOCYTES ABSOLUTE AUTO 0.54 K/mm3 (0.16-1.47); MONOCYTES PERCENT AUTO 5 % (4-13); Mean Corpuscular HGB 28.1 pg (26.0-34.0); Mean Corpuscular HGB Conc 30.3 g/dL (31.5-36.5); Mean Corpuscular Volume 93 fL (80-100); NEUTROPHILS ABSOLUTE AUTO 8.45 K/mm3 (1.96-9.15); NEUTROPHILS PERCENT AUTO 85 % (41-73); Platelet Count 365 K/mm3 (150-400); RDW Coefficient Variation 16.2 % (11.7-14.2); RDW Standard Deviation 52.8 fL (35.1-46.3); White Blood Cell Count 9.98 K/mm3 (4.00-11.30)
[2019-01-17 05:41] LABS: Magnesium, Blood 2.2 mg/dL (1.6-2.4)
[2019-01-17 05:51] LABS: Alanine Aminotransfer (ALT/SGP 20 U/L (12-78); Albumin, Blood 2.5 g/dL (3.4-5.0); Albumin/Globulin Ratio 0.7 (0.8-1.8); Alk Phos 110 U/L (50-136); Anion Gap 3 mmol/L (6-16); Aspartate Aminotrans (AST/SGOT 17 U/L (12-37); Bilirubin, Total 0.5 mg/dL (0.1-1.0); Blood Urea Nitrogen 14 mg/dL (8-24); Bun/Creatinine Ratio 28.4 (12.0-20.0); CO2, Blood 33 mmol/L (21-32); Calcium, Blood 8.5 mg/dL (8.5-10.1); Chloride, Blood 106 mmol/L (98-108); Creatinine, Blood 0.49 mg/dL (0.40-1.00); Globulin, Blood 3.5 g/dL (2.2-4.0); Glomerular Filtration Rate >60 (60-); Glucose, Blood 98 mg/dL (70-99); Potassium, Blood 4.2 mmol/L (3.5-5.5); Sodium, Blood 142 mmol/L (136-145)
--- NOTE | 2019-01-17 06:39 | NUR ---
LYING IN SEMI FOWLERS WITH EYES CLOSED. NO CHANGES SINCE START OF SHIFT. DENIES FURTHER NEEDS AT THIS TIME. SAFETY MEASURES IN PLACE. WILL GIVE HAND OFF TO ONCOMING SHIFT USING SBAR.
--- NOTE | 2019-01-17 11:23 | NUR ---
ECHOCARDIOGRAM COMPLETED
--- NOTE | 2019-01-17 18:40 | NUR ---
SHIFT SUMMARY PT A&OX4, VSS, NISQU[place], 3.5L NC, SOB W/EXERTION, BIOX AT BEDSIDE. DENIES PAIN. AMB SBA TO BRP, SAT IN CHAIR FOR A SHORT TIME. RAMIREZ PO, DENIES N&V. 20G LAC, SL. USES CALL LIGHT APPROPRIATELY. WCTM & TX PER EMAR UNTIL REPORT GIVEN TO ONCOMING ANDRE RN.
--- NOTE | 2019-01-18 04:51 | NUR ---
ABOUT FEELING SHORT OF BREATH AND A HEAVY CHEST.OFFERED BREATHING TREATMENT.PATIENT REFUSED.
--- NOTE | 2019-01-18 07:54 | NUR ---
SHIFT SUMMARY PT A&O X4 T/O SHIFT. [place]. VSS. TELEMETRY IN PLACE; NSR AT 81 AT THIS TIME PER PV INSTALLER TECH. PT LS, CRACKLES AND TIGHT THIS AM T/O; 3-3.5L O2 VIA NC. INCREASED WOB AND PT REPORTED SOB WITH ACTIVITY. CONT.-OX IN PLACE. UP TO TOILET WITH SBA. PT DENIED PAIN T/O SHIFT. EDUCATION ON DVT RISK AND SCD'S GIVEN; PT REFUSED SCD'S. CALL LIGHT IN REACH; PT DEMONSTRATES USE. REPORT GIVEN TO DAY SHIFT RN.
--- NOTE | 2019-01-18 09:43 | NUR ---
IV 20G IV PRESENT TO LFA.
--- NOTE | 2019-01-18 17:42 | NUR ---
SHORTNESS OF BREATH PT COMPLAINED OF INCREASED SOB THIS AFTER NOON AT APPROXIMATELY 1340. O2 SATURATION DROPPED TO 87% WHILE ON 3L O2. PT WAS INCREASED TO 4L AND O2 SATURATIONS IMPROVED TO GREATER THAN 90%. RT CALLED FOR A BREATHING TREATMENT. PT REPORTED FEELING BETTER AFTER HER BREATHING TREATMENT BUT STATES THAT SHE IS MORE SHORT OF BREATH THAN THIS AM. O2 SATURATIONS CONTINUED TO IMPROVE AFTER BREATHING TX. DR. ESTEVES NOTIFIED THAT PT REPORTS WORSENING SOB.
--- NOTE | 2019-01-18 18:05 | NUR ---
SHIFT SUMMARY PT HAS BEEN SOB T/O THE DAY. SHE REPORTS HER SOB HAS INCREASED THIS AFTERNOON AND EVENING. PT REMAINS ON 3L O2 VIA NC. SHE IS A 1 ASSIST WHEN OOB. VSS. WILL CONTINUE TO MONITOR UNTIL REPORT TO ONCOMING RN.
[2019-01-19 05:33] LABS: Albumin, Blood 2.6 g/dL (3.4-5.0); Anion Gap 4 mmol/L (6-16); Blood Urea Nitrogen 12 mg/dL (8-24); Bun/Creatinine Ratio 26.4 (12.0-20.0); CO2, Blood 33 mmol/L (21-32); Calcium, Blood 8.4 mg/dL (8.5-10.1); Chloride, Blood 103 mmol/L (98-108); Creatinine, Blood 0.46 mg/dL (0.40-1.00); Glomerular Filtration Rate >60 (60-); Glucose, Blood 83 mg/dL (70-99); Phosphorus, Blood 2.9 mg/dL (2.5-4.9); Potassium, Blood 3.9 mmol/L (3.5-5.5); Sodium, Blood 140 mmol/L (136-145)
[2019-01-19 05:34] LABS: PCO2 Arterial 59.9 mmHg (35-45); PO2 Arterial 81.6 mmHg (80-100); pH Blood Arterial 7.39 (7.35-7.45)
--- NOTE | 2019-01-19 07:28 | NUR ---
SUMMARY RT REQUESTED CHANGE OF DULARA TO PULMICORT PT UNABLE TO UNDERSTAND AND USE DULARA. PULMICORT CAN BE PUT IN NEB.I SPOKE WITH HOSPITALIST CHRISTOPH REGARDING THIS AND HE ADVISED TO HAVE DAY TIME HOSPITALIST ADDRESS THIS. ALSO PT ORDERED FOR Z MAX 500 MG DAILY INSTEAD OF USUAL 500 MG X1 DAY THEN 250 MG DAY RN AGREES TO FOLLOW UP ON THIS AND CONFIRM.
--- NOTE | 2019-01-19 07:57 | NUR ---
20G IV PRESENT TO LAC. FLUSHES WELL. WILL CONTINUE TO MONITOR.
--- NOTE | 2019-01-19 09:17 | NUR ---
ZITHROMAX DOSING CLARIFIED WITH DR. ESTEVES. PLAN TO CONTINUE ZITHROMAX AT 500MG DAILY.
--- NOTE | 2019-01-19 19:30 | NUR ---
SHIFT SUMMARY PT HAS CONTINUED TO BE SOB WITH INCREASED RR AND EFFORT THIS SHIFT. SHE DID REPORT HER BREATHING HAS IMPROVED SINCE YESTERDAY. PT REPORTS BREATHING TREATMENTS IMPROVE EASE OF BREATHING; O2 SATURATION ALSO INPROVES AFTER TREATMENT. PT EXPRESSED CONCERNS ABOUT LIVING WITH COPD. SHE ALSO ASKED QUESTIONS ABOUT END OF LIFE CARE/OPTIONS WITH STAFF; PALLIATIVE CARE WAS CONSULTED. PARK MANAGER CONSULTED REGARDING POSSIBLE PLACEMENT. PT IS [place]; WRITTING DOWN INFORMATION IS THE BEST WAY TO COMMUNICATE WITH THE PT. VSS. REPORT GIVEN TO ANDRE RN.
--- NOTE | 2019-01-19 19:42 | NUR ---
Called by nursing pt tearfull and expressing wanting to not have oxygen at home and to give up. Pt sitting in bed watching TV. Pt very hard of hearing and distruaght. wrote out most of questins. 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 Used deaf communication lizbeth to communicate much better flow and easier for patient to read. Pt denies headaches or falls. Some balance disturbance worsening with hearing loss. speech clear. pt has mild dyspnea at rest minimal arm movement keeps elbows in. conversation difficult becusae pt keeps crying and expressing fear. She states no fmaily and minimal support live at [facility]. struggling with ADL's she states she has medical and about 1000. per month and 15 dollars of food stanps. no nausea, ok appeteite and increasing fatigue and weight loss. did not review polst due to distress. pt kept asking for prayer. advised chaplian to see pt and prayed with her. Reviewed eating more with poatient. And strategies of support. Got pt some sancks so she can have some form of control and pick what she wants to eat. Got pt quilt to keep so she feels support and comfort. Reivew of pt with care manaer and physican. Frail geriatric will risk for safety. Was not able to assess smell or balance may need ot consult for adls and function. Pt almost deaf. Makes her high risk for injury and abuse. review with laboratory animal caretaker pt not able to be autonomous in completing application for more aid. Needs assisted living, need contact with diabilties network for hearing and deafness support. pt is orinted and was easily able to track conversation. Evidenced studies present hearing loss makes for high risk for dementia and falls. Review needed of pt abilites to complete ADL's. Review of commication startegies with bedside staff and strategies to lessen fear and promote some control of environment. pt expresses feeling supportied by staff.
[2019-01-20 05:31] LABS: Albumin, Blood 2.5 g/dL (3.4-5.0); Anion Gap 4 mmol/L (6-16); Blood Urea Nitrogen 23 mg/dL (8-24); Bun/Creatinine Ratio 43.4 (12.0-20.0); CO2, Blood 36 mmol/L (21-32); Calcium, Blood 8.5 mg/dL (8.5-10.1); Chloride, Blood 100 mmol/L (98-108); Creatinine, Blood 0.53 mg/dL (0.40-1.00); Glomerular Filtration Rate >60 (60-); Glucose, Blood 86 mg/dL (70-99); Phosphorus, Blood 2.4 mg/dL (2.5-4.9); Sodium, Blood 140 mmol/L (136-145)
--- NOTE | 2019-01-20 11:52 | NUR ---
PT WAS TEARFUL WHEN SEEN THIS A.M. AFTER SEENING MD. STATES SHE IS AT HER WITS END AND DOESN'T KNOW WHAT ELSE TO DO ABOUT FINDING A HOME AND SHE NEEDS HELP TO KNOW WHAT TO DO.
[2019-01-20] MEDS ORDERED: ALBU2.5V5 INH (16:02)
[2019-01-20] MEDS ORDERED: AZIT250 PO (16:03)
[2019-01-20] MEDS ORDERED: BUDE.25 NEB (16:03)
[2019-01-20] MEDS ORDERED: CALCIUM 600 +1 EA11 PO (16:04)
[2019-01-20] MEDS ORDERED: ACIDOPHILUS1 EACH PO (16:05)
[2019-01-20] MEDS ORDERED: PRED10 PO (16:07)
[2019-01-20] MEDS ORDERED: SENN187 PO (16:07)
--- NOTE | 2019-01-20 16:12 | NUR ---
Liseth is VERY [place] and we communicated via writing. She tells me she is "tired of living like this" and wants to know if she is dying. She was often tearful throughout conversation. She admits she'd "rather be than go on like this." She asked me if she will get better. It was unclear to me that she understands her illnes or its progress. She may have been told, but has not been able to hear or understand it. [facility] a [facility], and I am told that her time there is concluding. She denies having family or friends. Liseth and I spoke at length about God's love and capacity for forgiveness. She agrees that God has "probably" forgiven her, but still feels she is being punished. I suspect Liseth would benefit from long-term spiritual direction and counseling specialist. Clearly, Liseth needs to have her illness and options explained in a way she can understand. Is she going to get better? I have asked Kelly from Palliative Care to address this. In the meantime, Liseth responded well to prayer and gentle spiritual direction. I was unable to disuade her beleif that she is being punished, and I will continue to provide counseling specialist and prayer as schedule permits.
--- NOTE | 2019-01-20 16:45 | NUR ---
Palliative Care Review: Discussed case with chaplain Yola. She states that pt will be discharged to the [facility] - a homeless detention for women in the community. At the end of this month, she will have exhausted her stay there and will have to move somewhere else. Yola states that she will be going home with oxygen. Her hearing aids are at the [facility] at this time. Yola states that there is no security of personal property there, and it is likely that her hearing aids are now stolen or taken. Pt is severely disabled with her hearing. Yola reports that she is crying and expressing wish to instead of living with her current problems. Spoke to nurse Marguerite. She expresses grave concern over the safety of the discharge. Pt is geriatric and extremely frail. In review of past palliative notes, Lyric states that pt is at risk for abuse and injury due to her medical problems and her current social issues. Pt does not have family or friends, does not appear that she has any kind of support. APS is apparently going to assess her at [facility] on Friday, it is not known what kind of support she will have through this service. Pt has had 8 hospital visits - ER and admissions totals - in the last 5 months. Call placed to [facility] office. Staff reports that the patient was able to make her October and November appointments. They are aware of her homeless status and staff states, "we do what we can for her." Reviewed with Dr. Ruzi and Marguerite. Pt will qualify for hospice services under COPD guidelines. This was shared. Will visit with patient to see if symptoms can be relieved. She has been tearful and emotional. OT evaluated her: she is able to perform ADLs, if slowly. Marguerite has not assessed if the patient will be able to shower with O2, additionally, it would also depend on the layout of the [facility]. Will follow up with patient.
--- NOTE | 2019-01-20 17:53 | NUR ---
Discharge: Assisted nurse, Marguerite, with gathering pt's belongings. Marguerite is giving discharge instructions to pt. Due to hearing barrier, some things need repeating several times. Pt is asking questions about her medications - I do not see her verbalizing understanding of all instructions. Pt has been verbalizing that she would like to . Home health is following up with patient, will address this in the morning. Will work with care managers to advocate an intake to home health tomorrow, rather than later. APS will follow up with patient on Friday. Pt keeps taking her O2 off, Marguerite keeps reminding her to keep it on and places it back on her. This typewriter repairer verbalized concerns to nursing transportation supervisor, Zonia Brar. Called and left message for care management office, [facility]. Requested call back in the morning.
--- NOTE | 2019-01-20 18:39 | NUR ---
PT GOING TO [facility]. PT REPORTING SHE JUST WANTS TO BECAUSE SHE ISN'T GOING TO GET ANY BETTER AND GOD HAS LEFT HER. SHE SAYS SHE FEELS LIKE SHE HAS BEEN ABANDONED. SPOKE WITH CASE MANAGEMENT SEVERAL TIMES ABOUT LEAVING TODAY AND MD ABOUT CONCERNS ABOUT HER LEAVING. SPOKE WITH PALLIATIVE CARE WELL ABOUT POSSIBLE HOSPICE CARE DUE TO PTS WISHES TO BE DONE WITH LIVING. WAS ASKING FOR A PILL TO HELP HER . ATTEMPTED TO DISCUSS DISCHARGING MEDICATIONS WITH HER AND SHE RESPONDED IT WAS TOO COMPLICATED FOR HER TO UNDERSTAND. OXYGEN DELIVERED AT 1710 AND ATTEMPTED TO EXPLAIN HOW TO USE TANK. CALLED [facility] TO PICK PT UP PER [facility] AND FOR HER TO GO TO [facility] PRIOR TO GOING TO [facility]. DISCUSSED WITH MD PRIOR TO PT LEAVING THAT PT NEEDED HOME HEALTH TO SEE PT TOMORROW DUE TO CONCERN ABOUT PT NOT BEING ABLE TO HANDLE MEDICATIONS WELL NEWLY USING OXYGEN. TO CURB VIA W/C. PT ABLE TO DRESS HERSELF AND GET READY.
--- NOTE | 2019-01-21 10:30 | NUR ---
Follow up call placed to [facility] office to update on pt's desire to transition to comfort measures and hospice services. Staff verbalizes understanding. Call placed to Liseth. She did not answer and a voicemail was not given as the mailbox has not been set up.
--- NOTE | 2019-01-22 14:22 | NUR ---
REview of case with Care management department. Will review with ethics committee. follow up with Senior service on pt care. Concern that pt not safe for discharge due to hearing impairment and frailty. Pt high risk for readmission.
--- NOTE | 2019-01-22 15:51 | NUR ---
Follow up: Called to care management office to discuss case with [facility] medical case manager. Nuvia, medical case manager, assessed pt today. She reports that the pt does not qualify for any services at this time. Pt performing own ADLs, per Nuvia. Reviewed concerns with her: pt is going to be evicted from [facility] at the end of this month. Pt has O2 concentrator to keep track of. her car is broken down at this time. Reported to Nuvia that pt may qualify for hospice services and has expressed wish to . Pt's desire for hospice does not change qualification for help. pt has $1300 per month in income. Nuvia states that she is going to check up on the patient next week.
== END 2019-01-20 18:00 | disposition home or self-care (01) | DRG 189 ==
LOC: ER 06:52 → MEDS 06:53 → SURS 14:39
PROVIDERS: Emergency Medicine; Internal Medicine; ADMIT Internal Medicine
DX: J96.01 Acute respiratory failure with hypoxia (principal); E43 Unspecified severe protein-calorie malnutrition; J44.1 Chronic obstructive pulmonary disease with (acute) exacerbation; R64 Cachexia; M80.88XA Other osteoporosis with current pathological fracture, vertebra(e), initial encounter for fracture; F17.210 Nicotine dependence, cigarettes, uncomplicated; E78.5 Hyperlipidemia, unspecified; I10 Essential (primary) hypertension; I71.4 Abdominal aortic aneurysm, without rupture; Z85.3 Personal history of malignant neoplasm of breast; Z59.0 Homelessness; Z68.20 Body mass index [BMI] 20.0-20.9, adult
CPT/HCPCS: 36415; 36600; 71046; 71260; 80053; 80069; 82803; 82947; 83735; 83880; 84484; 85025; 93005; 93010; 93306; 94640; 94760; 94761; 94762; 96361; 96372; 96374-59; 97161; 97165; 97530; 99285-25; G0378; J1650; J1940; J2930; J7060; J7120; J7512; Q9967

== ENCOUNTER 2019-08-11 05:45 | Emergency (ER) | payer OTHER ==
[~2019-08-11] VITALS: Ht 154.9 cm; Wt 51.7 kg
[~2019-08-11 05:45] MED LIST changes: +ACIDOPHILUS1 EACH PO; +ALBU2.5V5 INH; +AZIT250 PO; +BUDE.25 NEB; +CALCIUM 600 +1 EA11 PO; +PRED10 PO; +SENN187 PO
[2019-08-11 06:46] LABS: Alanine Aminotransfer (ALT/SGP 70 U/L (12-78); Albumin, Blood 3.3 g/dL (3.4-5.0); Albumin/Globulin Ratio 0.7 (0.8-1.8); Alk Phos 218 U/L (50-136); Anion Gap 8 mmol/L (6-16); Aspartate Aminotrans (AST/SGOT 50 U/L (12-37); Bilirubin, Total 0.7 mg/dL (0.1-1.0); Blood Urea Nitrogen 10 mg/dL (8-24); Bun/Creatinine Ratio 21.3 (12.0-20.0); CO2, Blood 29 mmol/L (21-32); Calcium, Blood 9.1 mg/dL (8.5-10.1); Chloride, Blood 105 mmol/L (98-108); Creatinine, Blood 0.47 mg/dL (0.40-1.00); Globulin, Blood 4.6 g/dL (2.2-4.0); Glomerular Filtration Rate >60 (60-); Glucose, Blood 107 mg/dL (70-99); Potassium, Blood 3.7 mmol/L (3.5-5.5); Sodium, Blood 142 mmol/L (136-145); Total Protein, Blood 7.9 g/dL (6.4-8.2); Troponin I <0.015 ng/mL (0.000-0.040)
[2019-08-11 06:57] LABS: BASOPHILS ABSOLUTE AUTO 0.06 K/mm3 (0.00-0.23); BASOPHILS PERCENT AUTO 1 % (0-2); EOSINOPHILS PERCENT AUTO 0 % (0-6); Hematocrit 47.1 % (33.0-51.0); Hemoglobin 14.6 g/dL (11.5-16.0); IMMATURE GRAN ABSOLUTE AUTO 0.04 K/mm3 (0.00-0.10); IMMATURE GRAN PERCENT AUTO 0 % (0-1); LYMPHOCYTES ABSOLUTE AUTO 0.73 K/mm3 (0.84-5.20); LYMPHOCYTES PERCENT AUTO 8 % (21-46); MONOCYTES ABSOLUTE AUTO 0.96 K/mm3 (0.16-1.47); MONOCYTES PERCENT AUTO 10 % (4-13); Mean Corpuscular HGB 27.9 pg (26.0-34.0); Mean Corpuscular Volume 90 fL (80-100); Mean Platelet Volume 10.6 fL (9.1-12.4); NEUTROPHILS ABSOLUTE AUTO 7.71 K/mm3 (1.96-9.15); NEUTROPHILS PERCENT AUTO 81 % (41-73); Platelet Count 240 K/mm3 (150-400); RDW Coefficient Variation 18.6 % (11.7-14.2); RDW Standard Deviation 59.9 fL (35.1-46.3); Red Blood Cell Count 5.24 M/mm3 (3.80-5.20)
[2019-08-11] MEDS ORDERED: Prednisone20 MG PO (09:56)
[2019-08-11] MEDS ORDERED: Zithromax250 MG PO (09:56)
[2019-08-11] MEDS ORDERED: ALBU90OI INH (09:56)
== END 2019-08-11 10:26 | disposition home or self-care (01) ==
LOC: ER 05:45
PROVIDERS: Emergency Medicine
DX: J44.1 Chronic obstructive pulmonary disease with (acute) exacerbation (principal); I10 Essential (primary) hypertension; Z85.3 Personal history of malignant neoplasm of breast; E78.5 Hyperlipidemia, unspecified; Z88.6 Allergy status to analgesic agent; Z79.899 Other long term (current) drug therapy; Z79.52 Long term (current) use of systemic steroids; F17.210 Nicotine dependence, cigarettes, uncomplicated
CPT/HCPCS: 36415; 71046; 80053; 83880; 84484; 85025; 93005; 93010; 94640; 96374; 99285-25; J2930

== ENCOUNTER → 2019-10-28 | Outpatient (CLI) | payer OTHER | END | disposition home or self-care (01) | LOC: LAB 09:00 → LAB SHORT 09:00 | DX: L03.114 Cellulitis of left upper limb (principal) | CPT/HCPCS: 87070; 87075; 87077; 87186; 87205 ==

== ENCOUNTER 2019-11-22 12:02 | Inpatient (IN) | payer OTHER ==
[~2019-11-22] VITALS: Ht 154.9 cm; Wt 44.7 kg
[2019-11-22 12:43] LABS: BASOPHILS ABSOLUTE AUTO 0.06 K/mm3 (0.00-0.23); BASOPHILS PERCENT AUTO 1 % (0-2); EOSINOPHILS ABSOLUTE AUTO 0.01 K/mm3 (0.00-0.68); EOSINOPHILS PERCENT AUTO 0 % (0-6); IMMATURE GRAN ABSOLUTE AUTO 0.01 K/mm3 (0.00-0.10); IMMATURE GRAN PERCENT AUTO 0 % (0-1); LYMPHOCYTES ABSOLUTE AUTO 1.26 K/mm3 (0.84-5.20); LYMPHOCYTES PERCENT AUTO 21 % (21-46); MONOCYTES ABSOLUTE AUTO 0.61 K/mm3 (0.16-1.47); MONOCYTES PERCENT AUTO 10 % (4-13); Mean Corpuscular HGB 28.7 pg (26.0-34.0); Mean Corpuscular HGB Conc 31.1 g/dL (31.5-36.5); Mean Corpuscular Volume 92 fL (80-100); NEUTROPHILS ABSOLUTE AUTO 4.04 K/mm3 (1.96-9.15); NEUTROPHILS PERCENT AUTO 67 % (41-73); Platelet Count 301 K/mm3 (150-400); RDW Coefficient Variation 15.9 % (11.7-14.2); RDW Standard Deviation 54.2 fL (35.1-46.3); Red Blood Cell Count 4.87 M/mm3 (3.80-5.20); White Blood Cell Count 5.99 K/mm3 (4.00-11.30)
[2019-11-22 12:56] LABS: Source, Urine Clean Catch
[2019-11-22 12:57] LABS: Bilirubin, Urine Neg (Neg); Blood, Urine Neg (Neg); Glucose Qualitative, Urine Neg (Neg); Ketones, Urine Neg (Neg); Leukocyte Esterase, Urine 2+ (Neg); Nitrite, Urine Neg (Neg); Protein, Urine Neg (Neg); Specific Gravity, Urine 1.015 (1.003-1.022); Urobilinogen, Urine NORM (Normal)
[2019-11-22 13:01] LABS: Alanine Aminotransfer (ALT/SGP 47 U/L (12-78); Albumin, Blood 3.3 g/dL (3.4-5.0); Albumin/Globulin Ratio 0.8 (0.8-1.8); Alk Phos 194 U/L (50-136); Anion Gap 7 mmol/L (6-16); Aspartate Aminotrans (AST/SGOT 39 U/L (12-37); Bilirubin, Total 0.5 mg/dL (0.1-1.0); Blood Urea Nitrogen 8 mg/dL (8-24); CO2, Blood 27 mmol/L (21-32); Calcium, Blood 8.9 mg/dL (8.5-10.1); Chloride, Blood 106 mmol/L (98-108); Globulin, Blood 4.4 g/dL (2.2-4.0); Glucose, Blood 162 mg/dL (70-99); Potassium, Blood 3.8 mmol/L (3.5-5.5); Sodium, Blood 140 mmol/L (136-145); Total Protein, Blood 7.7 g/dL (6.4-8.2)
[2019-11-22 13:02] LABS: Bun/Creatinine Ratio 15.6 (12.0-20.0); Creatinine, Blood 0.51 mg/dL (0.40-1.00); Glomerular Filtration Rate >60 (60-)
[2019-11-22 13:13] LABS: Appearance, Urine Clear (Clear); Color, Urine Yellow (P-Yellow)
[2019-11-22 13:14] LABS: Bacteria Few /hpf; Red Blood Cells, Urine 0-2 /hpf (0-2); Squamous Epithelial Cells Few /hpf (Few); Transitional Epithelial Cells Few /hpf (0-Rare); White Blood Cells, Urine 25-50 /hpf (0-5)
[2019-11-22] MEDS ORDERED: LATANOPROST2.5 M1 BOTHEYES (16:04)
--- NOTE | 2019-11-22 19:40 | NUR ---
SHIFT SUMMARY PT A&OX4, VSS, DENIES PAIN, DENIES N&V, RAMIREZ PO COFFEE WITH CREAM AND ICE WATER, THEN PT IS TO BE NPO AT MIDNIGHT; CONSULT BY DR QUINTANILLA COMPLETED AT 1900. BLE'S ELEVATED. REPORT GIVEN TO NIKI RUBIN.
[2019-11-23 04:38] LABS: BASOPHILS ABSOLUTE AUTO 0.05 K/mm3 (0.00-0.23); BASOPHILS PERCENT AUTO 1 % (0-2); EOSINOPHILS ABSOLUTE AUTO 0.01 K/mm3 (0.00-0.68); EOSINOPHILS PERCENT AUTO 0 % (0-6); Hematocrit 44.4 % (33.0-51.0); IMMATURE GRAN ABSOLUTE AUTO 0.01 K/mm3 (0.00-0.10); IMMATURE GRAN PERCENT AUTO 0 % (0-1); LYMPHOCYTES ABSOLUTE AUTO 0.92 K/mm3 (0.84-5.20); LYMPHOCYTES PERCENT AUTO 16 % (21-46); MONOCYTES PERCENT AUTO 11 % (4-13); Mean Corpuscular HGB 28.7 pg (26.0-34.0); Mean Corpuscular HGB Conc 31.5 g/dL (31.5-36.5); Mean Corpuscular Volume 91 fL (80-100); Mean Platelet Volume 10.1 fL (9.1-12.4); NEUTROPHILS ABSOLUTE AUTO 4.04 K/mm3 (1.96-9.15); NEUTROPHILS PERCENT AUTO 72 % (41-73); Platelet Count 296 K/mm3 (150-400); RDW Coefficient Variation 15.8 % (11.7-14.2); Red Blood Cell Count 4.87 M/mm3 (3.80-5.20); White Blood Cell Count 5.63 K/mm3 (4.00-11.30)
[2019-11-23 05:01] LABS: Anion Gap 6 mmol/L (6-16); Blood Urea Nitrogen 7 mg/dL (8-24); Bun/Creatinine Ratio 15.4 (12.0-20.0); CO2, Blood 27 mmol/L (21-32); Calcium, Blood 8.7 mg/dL (8.5-10.1); Chloride, Blood 108 mmol/L (98-108); Creatinine, Blood 0.45 mg/dL (0.40-1.00); Glomerular Filtration Rate >60 (60-); Glucose, Blood 90 mg/dL (70-99); Potassium, Blood 3.9 mmol/L (3.5-5.5); Sodium, Blood 141 mmol/L (136-145)
--- NOTE | 2019-11-23 06:27 | NUR ---
SHIFT SUMMARY TRANSFERED ROOMS DUE TO PT NEEDING TO BE CLEARED FOR MRSA IN NARES. SWABS SENT TO LAB. CURRENTLY ON DROPLETTE AND CONTACT PRECAUTIONS. HAS BEEN NPO SINCE [place] FOR SURGERY TODAY WITH DR. QUINTANILLA. NEW PIV PLACED TO INNER ASPECT OF RIGHT AC AFTER PIV TP OUTER ASPECT INFILTRATED WHEN PT BENT ARM. OUTER ASP[ECT PIV REMOVED WITH CATH TIP INTACT, TOLERATED WELL. HAS ASKED 3 TIMES FOR COFFEE, BUT HAS TO BE REMINDED SHE IS NPO, VOICES UNDERSTANDING. DENEIS FURTHER NEEDS OR WANTS AT THIS TIME. SAFETY MEASURES IN PLACE. WILL GIVE HAND OFF TO ONCOMING SHIFT USING SBAR DURING BEDSIDE REPORT.
--- NOTE | 2019-11-23 11:50 | NUR ---
Patient is sitting up in bed and alert. Patient tells me about life as a homeless person, about her constance in God and about her current medical needs. I listen empathically, highlight patient's courage, hope and strength, reinforce helpful attitudes and practices and provide companionship and prayer. Patient responds well and shows signs of an elevated mood. Patient verbalizes appreciation for the visit.
--- NOTE | 2019-11-23 17:48 | NUR ---
SHIFT SUMMARY THE PATIENT IS ALERT AND ORIENTED AND INDEPENDENT IN ROOM. ON IV FLUIDS. VITALS STABLE, HOWEVER BP ELEVATED WHICH SEEMS TO BE THE PATIENTS NORM. THE PATIENT CALLS FOR STAFF ASSIST APPROPRIATELY. NO COMPLAINTS OF PAIN OR DISCOMFORT DURING THIS SHIFT. WILL CONTINUE TO MONITOR AND PROVIDE CARE NEEDED.
--- NOTE | 2019-11-24 04:04 | NUR ---
SHIFT SUMMARY PT [id number], VSS. PT HAS BEEN PASSING GAS AND HAVING BM. RESTING IN BED T/O SHIFT DENIES PAIN OR NAUSEA. TOLERATING CLEAR LIQUID DIET WELL. AWAITING DISCHARGE PLANNING. PT AMBULATES IN ROOM, HAS BEEN VOIDING.
--- NOTE | 2019-11-24 06:22 | NUR ---
ORDERS RECEIVED FOR NPO STATUS. PT NPO SINCE RECEIVING ORDERS. FOOD AND DRINKS REMOVED FROM PT ROOM.
--- NOTE | 2019-11-24 13:44 | NUR ---
PT TO DAY SURGERY VIA SANA
--- NOTE | 2019-11-24 14:16 | NUR ---
History, Chart, Medications and Allergies reviewed before start of procedure. Lungs clear T/O to Auscultation. Patient confirms NPO status and agrees with scheduled surgery. Pre-Op teaching done. Pt verbalizes understanding. IV IN LEFT FOREARM APPEARS TO HAVE INFILTRATED. NEW IV PLACED IN R FA. REPORT TO GIDEON RUBIN WHO WILL REMOVED LEFT FOREARM IV.
--- NOTE | 2019-11-24 14:24 | NUR ---
TOOK OVER PATIENT CARE AFTER BEDSIDE [id number].
--- NOTE | 2019-11-24 17:15 | NUR ---
POST OP PT ARRVIES TO UNIT VIA GOURNEY. TRANSFERRED TO BED. RLQ GAUZE W/ TEGADERM OVER. WNL. NO DRAINAGE NOTED. ABD SOFT AND NON TENDER. PT REQUESTS TO USE BATHROOM ASSISTED W/ 1 PERSON ASSIST TO BATHROOM. BACK TO BED EASILY. 3L NC APPLIED. CLEAR LQS GIVEN. COURSE UNPROD COUGH. DENIES PAIN OR N/V.
--- NOTE | 2019-11-25 02:30 | NUR ---
ASSUMED CARE OF PT. PT LYING IN BED, RESP E/U, NO DISTRESS NOTED. PLAN TO MONITOR AND TX PER ORDERS.
--- NOTE | 2019-11-25 03:13 | NUR ---
SHIFT SUMMARY POD 1 HERNIA REPAIR. DRESSING RLQ C/D/I. DENIES N/V, TOLERATING CL. MEDICATED X1 FOR PAIN PER EMAR. AMB TO BATHROOM WITH SBA. APPEARS TO HAVE SLEPT WELL T/O EVENING. IS CURRENTLY RESTING IN BED WITH CALL LIGHT IN REACH. REPORT GIVEN TO RAJNI RUBIN.
--- NOTE | 2019-11-25 06:25 | NUR ---
POD 1 S/P FEMORAL HERNIA REPAIR. PT VSS, PT REFUSING TO WEAR 02 NC. DRESSING CDI, SITE SOFT TO PALP. PT RAMIREZ CLEAR LIQ PO, NO C/O N/V, REP HAS BEEN PASSING SMALL AMT FLATUS. PT UP OOB W/SBA, IS IMPULSIVE AT TIMES, BED ALARM ON FOR SAFETY. WILL CONT TO MONITOR UNTIL REP GIVEN TO ONCOMING RN.
--- NOTE | 2019-11-25 08:30 | NUR ---
PT PLEASANT VERY [place]. A/O X3. DENIES PAIN, TALKS 5-6 WORDS WITHOUT PRESENTING SOB. H/R REG, NO MURMER NOTED. PT ELEVATED. RETAKE 143/72 P81, IMPROVED. NO TELE. NO PACER. LUNGS CLEAR RESP EASY, UNLABORED. ON R.A. BT HYPO. BUT CAN HEAR SOME. ABD SOME TENDER. AQUACEL AND GAUZE ON RT LQ. VOIDS PER BSC. 1 ASST. BED IN LOW POSITION, CALL LITE IN REACH, CALLS APPROP
[2019-11-25] MEDS ORDERED: ACET325 PO (11:45)
--- NOTE | 2019-11-25 12:16 | NUR ---
DISCHARGE REVIEWED WITH PT SHE STATES HAS AUTO OUT FRONT FOR HER USE. PT VERBALIZED UNDERSTANDING OF MEDS AND INSTRUCT. IV PULLED INTACT. NO TELE. PT STATES WILL LIKE TO EAT PRIOR TO D/C
--- NOTE | 2019-11-25 13:47 | NUR ---
PT WHEELED OUT DOOR AFTER LUNCH BY CHEESE CUTTER AT [id number]
== END 2019-11-25 13:30 | disposition home or self-care (01) | DRG 350 ==
LOC: ER 12:02 → SURS 16:44
PROVIDERS: Physician Assistant; ADMIT Internal Medicine
PROC: 0YU70JZ Supplement Right Femoral Region with Synthetic Substitute, Open Approach (ICD-10-PCS; principal; 2019-11-25)
DX: K41.30 Unilateral femoral hernia, with obstruction, without gangrene, not specified as recurrent (principal); E43 Unspecified severe protein-calorie malnutrition; K56.600 Partial intestinal obstruction, unspecified as to cause; J44.9 Chronic obstructive pulmonary disease, unspecified; I10 Essential (primary) hypertension; M81.0 Age-related osteoporosis without current pathological fracture; E78.5 Hyperlipidemia, unspecified; F17.210 Nicotine dependence, cigarettes, uncomplicated; Z59.0 Homelessness; Z68.21 Body mass index [BMI] 21.0-21.9, adult
CPT/HCPCS: 36415; 74177; 80048; 80053; 81001; 83690; 85025; 87081; 87086; 99285-25; A9270; C1781; G0378; J0690; J3010; J7030; J7120; Q9967

== ENCOUNTER 2019-12-10 08:35 | Day surgery (SDC) | payer OTHER ==
[~2019-12-10 08:35] MED LIST changes: +LATANOPROST2.5 M1 BOTHEYES
== END 2019-12-10 23:24 | disposition home or self-care (01) ==
LOC: MOI US 08:35
DX: C96.9 Malignant neoplasm of lymphoid, hematopoietic and related tissue, unspecified (principal)
CPT/HCPCS: 38505; 76942

== ENCOUNTER 2020-05-30 12:02 | Inpatient (IN) | payer OTHER ==
[~2020-05-30] VITALS: Ht 154.9 cm; Wt 49.7 kg
[2020-05-30 13:34] LABS: BASOPHILS ABSOLUTE AUTO 0.05 K/mm3 (0.00-0.23); BASOPHILS PERCENT AUTO 0 % (0-2); EOSINOPHILS PERCENT AUTO 0 % (0-6); Hematocrit 40.6 % (33.0-51.0); Hemoglobin 12.4 g/dL (11.5-16.0); IMMATURE GRAN ABSOLUTE AUTO 0.05 K/mm3 (0.00-0.10); IMMATURE GRAN PERCENT AUTO 0 % (0-1); LYMPHOCYTES ABSOLUTE AUTO 0.65 K/mm3 (0.84-5.20); LYMPHOCYTES PERCENT AUTO 5 % (21-46); MONOCYTES ABSOLUTE AUTO 1.31 K/mm3 (0.16-1.47); MONOCYTES PERCENT AUTO 10 % (4-13); Mean Corpuscular HGB 28.8 pg (26.0-34.0); Mean Corpuscular HGB Conc 30.5 g/dL (31.5-36.5); Mean Corpuscular Volume 94 fL (80-100); Mean Platelet Volume 11.9 fL (9.1-12.4); NEUTROPHILS ABSOLUTE AUTO 10.61 K/mm3 (1.96-9.15); NEUTROPHILS PERCENT AUTO 84 % (41-73); NRBC ABSOLUTE 0.07 K/mm3 (0.00-0.02); NRBC Auto 0.6 /100 WBC (0.0-0.2); Platelet Count 133 K/mm3 (150-400); RDW Coefficient Variation 16.5 % (11.7-14.2); RDW Standard Deviation 56.1 fL (35.1-46.3); White Blood Cell Count 12.67 K/mm3 (4.00-11.30)
[2020-05-30 13:50] LABS: Alanine Aminotransfer (ALT/SGP 54 U/L (12-78); Albumin, Blood 2.4 g/dL (3.4-5.0); Albumin/Globulin Ratio 0.6 (0.8-1.8); Alk Phos 641 U/L (50-136); Anion Gap 5 mmol/L (6-16); Aspartate Aminotrans (AST/SGOT 86 U/L (12-37); Bilirubin, Total 0.9 mg/dL (0.1-1.0); Blood Urea Nitrogen 27 mg/dL (8-24); Bun/Creatinine Ratio 41.9 (12.0-20.0); CO2, Blood 29 mmol/L (21-32); Calcium, Blood 10.3 mg/dL (8.5-10.1); Chloride, Blood 110 mmol/L (98-108); Creatinine, Blood 0.64 mg/dL (0.40-1.00); Ethanol (Alcohol), Blood, Med <3 mg/dL; Globulin, Blood 4.1 g/dL (2.2-4.0); Glomerular Filtration Rate >60 (60-); Glucose, Blood 112 mg/dL (70-99); Potassium, Blood 4.1 mmol/L (3.5-5.5); Sodium, Blood 144 mmol/L (136-145); Total Protein, Blood 6.5 g/dL (6.4-8.2)
[2020-05-30] MEDS ORDERED: ANAS1 PO (14:52)
[2020-05-30] MEDS ORDERED: SIMBRINZA 1%-0.28 ML BOTHEYES (14:52)
[2020-05-30 16:30] LABS: U Amphetamine Screen Not Detected; U Barbituate Screen Not Detected; U Benzodiazapine Screen Not Detected; U Buprenorphine Screen Not Detected; U Cannabinoids Screen Not Detected; U Cocaine Screen Not Detected; U Methadone Screen Not Detected; U Methamphetamine Screen Not Detected; U Opiates Screen Not Detected; U Oxycodone Screen Not Detected; U Phencyclidine Screen Not Detected; U Propoxyphene Screen Not Detected
--- NOTE | 2020-05-30 17:29 | NUR ---
PT ADMITTED TO ICU, PCU STATUS FROM ER FOR ACS AT 1620. PT VERY [place], HEARING AIDES IN PLACE BILATERALLY. PT DENIES COMPLAINTS. STATES SHE WENT TO ER FOR FATIGUE. PT HOMELESS, LIVES IN CAR. DENIES CHEST PAIN OR SOB. PT c SHALLOW RESP, COARSE, DIMINISHED IN BASES. DENIES COUGH. HR 80'S, NSR c PVCS. ELEVATED TROP. CARDIOLOGY CONSULTED BY HOSPITALIST. PT c 2+ EDEMA TO LOWER EXTREMITIES BILATERALLY. ABD DISTENDED, SOFT, NON TENDER. BT X 4. PT REQUESTING DINNER, TRAY ORDERED. SKIN FRAGILE, ECCHYMOSIS TO BILATERAL ARMS AND BACK. BP STABLE. PT AMB IN ROOM TO TOILET, STANDBY ASSIST, SLOW GAIT. WILL CONTINUE TO MONITOR UNTIL REPORT TO ONCOMING NURSE.
[2020-05-30 21:05] LABS: International Normalized Ratio 1.49; Prothrombin Time Results 15.6 Sec (9.7-11.5)
[2020-05-31 03:59] LABS: BASOPHILS ABSOLUTE AUTO 0.05 K/mm3 (0.00-0.23); BASOPHILS PERCENT AUTO 0 % (0-2); EOSINOPHILS PERCENT AUTO 0 % (0-6); Hematocrit 43.5 % (33.0-51.0); Hemoglobin 12.9 g/dL (11.5-16.0); IMMATURE GRAN ABSOLUTE AUTO 0.07 K/mm3 (0.00-0.10); IMMATURE GRAN PERCENT AUTO 1 % (0-1); LYMPHOCYTES ABSOLUTE AUTO 0.71 K/mm3 (0.84-5.20); LYMPHOCYTES PERCENT AUTO 6 % (21-46); MONOCYTES ABSOLUTE AUTO 1.16 K/mm3 (0.16-1.47); MONOCYTES PERCENT AUTO 9 % (4-13); Mean Corpuscular HGB 28.7 pg (26.0-34.0); Mean Corpuscular HGB Conc 29.7 g/dL (31.5-36.5); Mean Corpuscular Volume 97 fL (80-100); Mean Platelet Volume 11.8 fL (9.1-12.4); NEUTROPHILS ABSOLUTE AUTO 10.59 K/mm3 (1.96-9.15); NEUTROPHILS PERCENT AUTO 84 % (41-73); Platelet Count 170 K/mm3 (150-400); RDW Coefficient Variation 15.9 % (11.7-14.2); RDW Standard Deviation 55.7 fL (35.1-46.3); White Blood Cell Count 12.58 K/mm3 (4.00-11.30)
[2020-05-31 04:36] LABS: Anion Gap 4 mmol/L (6-16); Blood Urea Nitrogen 21 mg/dL (8-24); Bun/Creatinine Ratio 37.4 (12.0-20.0); CHOL/HDL RATIO 3.9; CO2, Blood 30 mmol/L (21-32); Chloride, Blood 109 mmol/L (98-108); Cholesterol 132 mg/dL (50-200); Creatinine, Blood 0.56 mg/dL (0.40-1.00); Glomerular Filtration Rate >60 (60-); Glucose, Blood 96 mg/dL (70-99); HDL Cholesterol 34 mg/dL (>39); LDL/HDL RATIO 2.2; Low Density Lipoprotein Chol 76 mg/dL (0-110); Potassium, Blood 4.3 mmol/L (3.5-5.5); Sodium, Blood 143 mmol/L (136-145); Triglycerides 112 mg/dL (30-160); Very Low Density Lipoprot Chol 22 mg/dL (6-32)
[2020-05-31 12:09] LABS: Free Thyroxine 0.98 ng/dL (0.70-1.60); Thyroid Stimulating Hormone 1.19 uIU/mL (0.360-4.800)
--- NOTE | 2020-05-31 12:19 | NUR ---
ECHOCARDIOGRAM COMPLETED
--- NOTE | 2020-05-31 13:55 | NUR ---
CARE ASSUMED ASSESSMENT COMPLETED, PT DENIES CHEST PAIN AND SOB, VSS, HR 70'S-80'S SINUS WITH PVC'S. PT VERY DROWSY, ORIENTED WHEN WOKEN, ANSWERS QUESTIONS APPROPRIATELY BUT THEN GOES DIRECTLY BACK TO SLEEP, STATES THAT SHE HAS BEEN DROWSY FOR A COUPLE DAYS AND THAT THIS IS UNUSUAL FOR HER. HEPARIN INFUSING AT 15U/KG/HR, O2 2L/NC. DR. BUCHANAN IN TO ASSESS, NEW ORDERS. PT ASSISTED UP TO CHAIR BY PT, TOLERATED WELL WITH 1 PERSON ASSIST, REMAINS SITTING IN CHAIR FOR ABOUT 1 HOUR FOR S/T CONSULT. PT THEN C/O MID STERNAL CHEST PAIN WITHOUT SOB, NAUSEA, OR RADIATION, SL NITRO ADMINISTERED X1 WITH GOOD RESULTS, PT DENIES CHEST PAIN AFTER ADMINISTRATION. BP DECREASED, PT BECAME DIZZY, WAS ASSISTED BACK TO BED. BP RESOLVED SHORTLY WITH NO INTERVENTIONS, PT STATES SX RESOLVED WELL. REMAINS IN BED, NO CHANGES NOTED TO TELE OR HR.
--- NOTE | 2020-05-31 16:43 | NUR ---
CARDIOLOGY CONSULT DR. TEJADA AT BEDSIDE TO ASSESS, DISCUSSED ECHO FINDINGS WITH PATIENT AND PLAN FOR DIAGNOSTIC ANGIO, PT REFUSES PROCEDURE AT THIS TIME. NEW ORDERS TO CONTINUE HEPARIN GTT UNTIL 06/01 AT 2200 AND TO DISCONTINUE VASODILATORS.
--- NOTE | 2020-05-31 17:50 | NUR ---
Initial spiritual care note: Mrs. Mayer appears sleepy, frail, and had trouble staying awake for conversation. She denies having any family left. No friends. Says she has been living in her car. She could not tell me why she is hospitailzed or how she feels about it. She is [place] and weak. Conversation is difficult. I did pray for her at bedisde. She squeezed my hand harder. She denied pain/fear. I will remain available.
--- NOTE | 2020-05-31 18:37 | NUR ---
END OF SHIFT PT COOPERATIVE WITH PT/OT/ST TODAY, UP IN CHAIR X2 AND TO BSC MULTIPLE TIMES WITH 1 PERSON ASSIST AND WALKER. GAIT SLOW BUT STEADY, PT HAS SIGNIFICANT KYPHOSIS. HR UNCHANGED, SINUS WITH PVC'S, BP HAS BEEN STABLE THIS AFTERNOON SINCE PT RECOVERED FROM NITRO HYPOTENSION. NO ADDITIONAL C/O CHEST PAIN OR DIZZINESS SINCE THIS MORNING'S EPISODE. LS CLEAR, DIM IN BASES, UNABLE TO TITRATE O2 DOWN FROM 3L D/T DESAT WHILE SLEEPING, NO DESAT OR C/O SOB WITH EXERTION TODAY. PT REMAINS DROWSY BUT ORINETED, SLEEPING BETWEEN CARES. ATE [facility] SOFT DIET WITH THICKENED LIQUIDS WITH MINIMAL COUGHING, TOLERATED MEDS WELL WITH THICKENED LIQUIDS. HEPARIN INFUSING AT 16U/KG/HR, ORDER TO RECHECK PTT AT 2100 TONIGHT. REPORT TO ONCOMING SHIFT.
--- NOTE | 2020-05-31 20:00 | NUR ---
ASSUMED CARE OF PT AT 1915. REPORT RECEIVED. PT PRESENTS IN BED DOES REQUEST TO BE UP TO BEDSIDE COMMODE. PT HAS BM, AND VOIDS Q.S. IS ABLE TO STAND AND TRANSFER WITH ONE PERSON ASSIST. WILL REVIEW CHART AND PLAN OF CARE FOR THIS PT.
--- NOTE | 2020-06-01 | NUR ---
PT DOES WELL WITH NECTAR THICK FLUIDS. TEACHING DONE ON SAFE SWALLOW WITH CHIN TUCK. PT OCCASSIONALLY FOUND TO HAVE REMOVED HER OXYGEN. DESATURATIONS INTO LOW 80 PERCENTS.
[2020-06-01 04:46] LABS: BASOPHILS ABSOLUTE AUTO 0.04 K/mm3 (0.00-0.23); BASOPHILS PERCENT AUTO 0 % (0-2); EOSINOPHILS PERCENT AUTO 0 % (0-6); Hematocrit 36.3 % (33.0-51.0); IMMATURE GRAN ABSOLUTE AUTO 0.05 K/mm3 (0.00-0.10); IMMATURE GRAN PERCENT AUTO 0 % (0-1); LYMPHOCYTES ABSOLUTE AUTO 0.78 K/mm3 (0.84-5.20); LYMPHOCYTES PERCENT AUTO 7 % (21-46); MONOCYTES PERCENT AUTO 11 % (4-13); Mean Corpuscular HGB 28.9 pg (26.0-34.0); Mean Corpuscular HGB Conc 30.3 g/dL (31.5-36.5); Mean Corpuscular Volume 95 fL (80-100); Mean Platelet Volume 11.7 fL (9.1-12.4); NEUTROPHILS ABSOLUTE AUTO 9.31 K/mm3 (1.96-9.15); NEUTROPHILS PERCENT AUTO 82 % (41-73); Platelet Count 211 K/mm3 (150-400); RDW Coefficient Variation 15.8 % (11.7-14.2); RDW Standard Deviation 55.3 fL (35.1-46.3); Red Blood Cell Count 3.81 M/mm3 (3.80-5.20); White Blood Cell Count 11.38 K/mm3 (4.00-11.30)
[2020-06-01 05:02] LABS: Anion Gap 2 mmol/L (6-16); Blood Urea Nitrogen 21 mg/dL (8-24); Bun/Creatinine Ratio 35.4 (12.0-20.0); CO2, Blood 37 mmol/L (21-32); Calcium, Blood 8.8 mg/dL (8.5-10.1); Chloride, Blood 105 mmol/L (98-108); Creatinine, Blood 0.59 mg/dL (0.40-1.00); Glomerular Filtration Rate >60 (60-); Glucose, Blood 98 mg/dL (70-99); Potassium, Blood 3.6 mmol/L (3.5-5.5); Sodium, Blood 144 mmol/L (136-145)
--- NOTE | 2020-06-01 06:30 | NUR ---
PT HAS BEEN ABLE TO REST THROUGH THE NIGHT. TOLERATES TURNS Q 2 HOURS. REMAINS ON 3 L/M OXYGEN PER NASAL CANNULA. NO DISTRESS NOTED. WILL REPORT OFF TO ONCOMING RN.
--- NOTE | 2020-06-01 11:56 | NUR ---
CARE ASSUMED ASSESSMENT COMPLETED, PT REMAINS ON HEPARIN GTT AT 18U/KG/HR. VSS, HR 70'S SINUS, T WAVE DEPRESSION NOTED IN V1 LEAD. PT DENIES CP/SOB, O2 3L/NC. PT TOLERATING PUREE DIET AND THICKENED LIQUIDS WITHOUT DIFFICULTY AND MEDS IN APPLESAUSE. ASPERCREME APPLIED TO PT'S BACK PER HER REQUEST FOR CHRONIC ACHING BACK PAIN. PT ASSISTED TO BSC WITH 1 PERSON AND WALKER WITHOUT DIFFICULTY, THEN TO CHAIR FOR AM CARES AND OT. PT NOW BACK IN BED EATING LUNCH, DENIES NEEDS.
--- NOTE | 2020-06-01 14:05 | NUR ---
Pt resting in bed upon arrival. Pt is A&O and denies pain at this time. Pt denies dyspnea and nausea. Engaged in therapeutic discussion regarding completing a POLST. Educated on life sustaining treatments, risk factors, and implications. Discussed in detail with some repeat education. Pt V/U. Assisted Pt with completing POLST. Pt chooses DNR and Limited Treatment. Listened as Pt reports being homeless and no friends or family for support. Continued therapeutic listening. Pt reports no other concerns at this time. Spoke with Bedside SCOTTIE Prabhakar and discussed case. Called and spoke with Dr Loyd. Changed Pt's code status to DNR per V/O from Dr Loyd. Dr Loyd will sign Pt's POLST during her rounds tomorrow. Palliative Care will remain available.
--- NOTE | 2020-06-01 18:54 | NUR ---
END OF SHIFT PT RESTED THIS AFTERNOON, REFUSED TO WORK WITH P/T STATING SHE WAS TOO TIRED. UP TO BSC MULTIPLE TIMES WITHOUT DIFFICULTY, SMALL BM THIS EVENING. BP ELEVATED 160'S/80'S, NOTIFIED, NO NEW ORDERS AT THIS TIME. HR 70'S SINUS. PT REMAINS ORIENTED BUT DROWSY, LS WITH CRACKLES IN BASES, LASIX ADMINISTERED PER DEC. ABD REMAINS DISTENDED BUT SOFT, NONTENDER. ABD US COMPLETED, PRELIMINARY RESULTS REPORTED THAT PT HAS MULTIPLE MASSES ON LIVER, DR. TEJADA AND DR. NGUYEN NOTIFIED, NO NEW ORDERS AT THIS TIME. DR. TEJADA VERBALIZES PLAN FOR CONSERVATIVE MEDICAL MANAGEMENT. PALLIATIVE CARE IN TO SEE PATIENT EARLIER THIS SHIFT, PT CHANGED CODE STATUS TO DNR. APPETITE POOR TODAY, DECENT PO FLUID INTAKE. ASPERCREME EFFECTIVE FOR BACK PAIN. REPORT TO ONCOMING SHIFT.
--- NOTE | 2020-06-01 18:57 | NUR ---
NO NEW C/O CHEST PAIN/SOB THIS SHIFT.
--- NOTE | 2020-06-01 19:29 | NUR ---
ASSUMED CARE OF PT AT 1915. REPORT RECEIED AT BEDSIDE. PT PRESENTS IN BED SLEEPING. AWAKENS EASILY TO VERBAL AND TACTILE. UP TO BEDSIDE COMMODE WITH ONE PERSON ASSIST. VOIDS Q.S. NO S/S DISTRESS. VERY [place]. WILL REVIEW CHART AND PLAN OF CARE FOR THIS PT.
--- NOTE | 2020-06-02 | NUR ---
PT HAS BEEN RESTING THIS NIGHT. TOLERATES TURNS IN BED. NO COMPLAINTS VOICED THIS NIGHT. IS ABLE TO GET UP TO BEDSIDE COMMODE WITH ONE PERSON ASSIST. CONTINUED TO WORK ON SAFE SWALLOW TECHNIQUE BINA RAHMAN. WILL CONTINUE TO MONITOR PT.
--- NOTE | 2020-06-02 06:31 | NUR ---
PT HAS HAD AN UNEVENTFUL NIGHT. NO COMPLAINTS. WAS ABLE TO SLEEP. TOLERATED TURNS IN BED. DENIES PAIN. REMAINS IN SINUS RHYTHM WITH OCCASSIONAL PVC'S. WILL CONTINUE TO MONITOR PT, AND WILL REPORT OFF TO ONCOMING RN.
--- NOTE | 2020-06-02 07:15 | NUR ---
ASSUMED CARE: RECEIVED BEDSIDE REPORT FROM NOC RN. PT APPEARS TO BE SLEEING WITH EVEN CHEST RISE AND FALL NO ACUTE DISTRESS NOTED AT THIS TIME. TEMP APPEARS NORMAL.
--- NOTE | 2020-06-02 08:00 | NUR ---
DR NGUYEN IN TO ASSESS THE PT.
--- NOTE | 2020-06-02 08:30 | NUR ---
DR SANTANA: IN TO ASSESS THE PT. POLST SIGNED AND PALATIVE CARE NOTIFIED.
--- NOTE | 2020-06-02 08:59 | NUR ---
MED STUDENT IN TO ASSESS THE PT.
--- NOTE | 2020-06-02 09:50 | NUR ---
REPORT GIVEN TO RN FOR ROOM 355
--- NOTE | 2020-06-02 11:15 | NUR ---
PT TRANSFERED BY WHEELCHAIR TO MEDICAL FLOOR BY PHYSICAL THERAPIST.
--- NOTE | 2020-06-02 11:55 | NUR ---
HEARING AIDS SENT UP TO ROOM 355 FOR PT
--- NOTE | 2020-06-02 15:44 | NUR ---
SHIFT SUMMARY 1130 RECEIVED PT TO RM 355 FROM ICU 5 VIA W/C. PT ABLE TO TX SELF TO BED WITH 1P SBA. PT WEAK AND UNSTEADY. PER REPORT, PT ADMITTED FOR ACS/CHF. PT SEEN BY DR TEJADA, BUT REFUSING TX NEEDED. PT ALSO REFUSING TX FOR MASSES FOUND ON LIVER. POLST OBTAINED AND SIGNED; PT NOW DNR. VERY [place], EVEN WITH HEARING AIDS. SKIN FRAGILE, THIN, AND WITH SCATTERED BRUISING. LUNGS T/O WITH SCATTERED CRACKLES. PER REPORT, PT HAD BEEN ON 4L NC, BUT NOW 1L NC. PT SR W/PVC'S PER TELE MX. DENIED PAIN. DENIED NEEDS. PRESENTLY WORKING WITH P/T. WILL MONITOR. CALL LT IN REACH.
--- NOTE | 2020-06-02 16:58 | NUR ---
Pt visit this afternoon. Pt is A&O and reports a tolerable 1/10 pain across her upper abdomen. Engaged in therapeutic discussion regarding ultra sound findings. Pt reports she does not want to pursue treatment for cancer. Pt is [place] and at times can be a communication barrier. When asked why she does not want to pursue teatment, Pt states "I'm tired of fighting", and "I'm ready to go home to [facility]". Continued therapeutic listening and offered emotional support. Pt is tearful at times. Pt discusses how her quality of life has significantly decrease. Bedside SCOTTIE Wilburn at bedside as well. Pt reports wanting to focus on comfort and goal is hospice. Educated on hospice philosophy with V/U made by Pt. Pt would also like to pursue comfort measures during her hospital stay. Discussed case further with SCOTTIE Wilburn. Akila agrees Pt's level of understanding is adequate and agrees with Pt's decision for comfort care and hospice. Called and spoke with Dr Loyd and Dr Wilson. Discussed case and Pt's wishes. Dr Wilson reports plan to review Pt's medications in the AM and will place orders in the AM. Palliative Care will remain available.
--- NOTE | 2020-06-03 04:18 | NUR ---
SHIFT SUMMARY- PT. A&O AND [place]. HAD NO COMPLAINTS THIS SHIFT. ASLEEP T/O THE NIGHT, NO APPARENT DISTRESS NOTED. VOIDED IN BSC WITH ASSISTANCE. PT. VERY WEAK AND GAIT UNSTEADY. ON 2L NC, VSS. DENIED ANY NEEDS DURING THE NIGHT. CALL LIGHT WITHIN REACH, SIDE RAILS UPX2, AND BED ALARM ON FOR SAFETY. WILL CONT TO MONITOR.
--- NOTE | 2020-06-03 16:35 | NUR ---
SHIFT SUMMARY PT A/O X2. VERY [place]. CORRECT BATTERIES WERE BROUGHT IN FOR HER HEARING AIDES. PT WORKED WITH P.T. THIS SHIFT. HAS BEEN INCONT FOR MOST OF THE SHIFT AND HAS SLEPT FOR THE MAJORITY OF THE SHIFT WELL. ON 2 LITERS O2 VIA NC. TAKES MEDS WHOLE ONE AT A TIME IN APPLE SAUCE. HAS DENIED ANY PAIN OR DISCOMFORT THIS SHIFT. VSS. CALL LIGHT IN REACH. WILL CONTINUE TO MONITOR.
--- NOTE | 2020-06-03 21:50 | NUR ---
UPON ENTERING ROOM, THIS NURSE FOUND SMALL AMOUNT OF BLOOD ON PT'S DOHERTY PAD AND GOWN. NOTED PT. HAD A SKIN TEAR TO LT FA WHICH WAS THE SOURCE OF THE BLOOD. PT. ALERT BUT UNAWARE OF SKIN TEAR. CLEANED AREA WITH GAUZE AND COVERED WITH MEPILIX. PT. TOLERATED WELL. FULL BED CHANGE DONE. PT. REPOSITIONED FOR COMFORT. DENIED ANY C/O PAIN OR DISCOMFORT. PT. RESTING QUIETLY IN BED, NO APPARENT DISTRESS NOTED. CALL LIGHT WITHIN REACH, SIDE RAILS UPX2, AND BED ALARM ON FOR SAFETY. WILL CONT TO MONITOR.
--- NOTE | 2020-06-04 04:44 | NUR ---
SHIFT SUMMARY- PT. RESTED QUIETLY IN BED, NO APPARENT DISTRESS NOTED. UP TO BSC W/ASSISTANCE. PT. INCONT/CONT, ATTENDS IN PLACE. APPEARED FATIGUED LAST NIGHT, ON 2L NC. NOTED SKIN TEAR TO LFA HAD SOME MILD BLEEDING (SEE NURSE NOTE). COVERED AREA WITH 4X4 GAUZE AND REWRAPPED WITH [place], TOLERATED WELL. DENIED ANY COMPLAINTS. CALL LIGHT WITHIN REACH, SIDE RAILS UPX3, AND BED ALARM ON FOR SAEFTY. WILL CONT TO MONITOR.
--- NOTE | 2020-06-04 13:49 | NUR ---
brought pt batteries for hearing aids yesterday theraputic viist. Sleeping a lot. plan is comfort care.
--- NOTE | 2020-06-04 15:47 | NUR ---
theraputic viist with pt. She states she cant get comfortable and feels crummy. She denies pain or nause. Repitations slightly labored affect falt asked if her berathing feels tight she stated yes im working alittle hard. Reported to nursing for prn meds.
--- NOTE | 2020-06-04 17:04 | NUR ---
SHIFT SUMMARY PT A/O X3 AND [place]. WAS MADE COMFORT CARE THIS SHIFT. MEDICATED WITH ROXENOL FOR PAIN W/GOOD EFFECT. CONT/INCONT. 1 ASSIST TO THE BA/ARCENIO. HAS BEEN RESTING IN BED COMFORTABLY FOR MOST OF THE SHIFT. WILL CONTINUE TO MONITOR.
--- NOTE | 2020-06-05 04:47 | NUR ---
SUMMARY PT HAD SOME DISCOMFORT AND TX PER EMAR. PT HAS SLEPT WELL W/ OUT ISSUE. PT CURRENTLY AWAKE AND DRINKING COFFEE. CALL LIGHT IN REACH.
--- NOTE | 2020-06-05 09:56 | NUR ---
Pt resting in bed upon arrival. Pt denies pain and dyspnea at this time. Pt reports wanting assistance with placement with hospice. Pt reports no concerns at this time. Spoke with Bedside RN Emily and discussed case. Spoke with Caremanager Emily and discussed case. Palliative Care will remain available.
--- NOTE | 2020-06-05 18:47 | NUR ---
SHIFT SUMMARY PT IS ALERT AND ORIENT TO PERSON/PLACE, CALM AND COOPERATIVE. PT EXPRESSED THAT SHE DIDN'T WANT ANY MEDICATIONS TODAY THAT WOULD MAKE HER SLEEPY. PT MEDICATED PRN FOR BACK PAIN WITH TYLENOL AND WAS ABLE TO FALL ASLEEP. COMFORT MEASURES CONTINUE, PER ORDERS.
--- NOTE | 2020-06-06 01:48 | NUR ---
COMFORT CARE CURRENTLY UP IN BED. UP TO BSC WITH 1 PERSON ASSIST. GIVEN TYLENOL FOR PAIN. REPOSITIONED TO INCREASE COMFORT. BED IN LOWEST POSITION WITH CALL LIGHT IN REACH. WILL CONTINUE TO MONITOR.
--- NOTE | 2020-06-06 01:50 | NUR ---
COMFORT CARE CURRENTLY RESTING IN BED. REPOSITIONED TO INCREASE COMFORT. DENIES PAIN AT THIS TIME. BED IN LOWEST POSITON WITH CALL LIGHT IN REACH. WILL CONTINUE TO MONITOR.
--- NOTE | 2020-06-06 02:30 | NUR ---
COMFORT CARE APPEARS TO BE RESTING COMFORTABLY IN BED AT THIS TIME. BED IS IN LOWEST POSITION WITH CALL LIGHT IN REACH. WILL CONTINUE TO MONITOR.
--- NOTE | 2020-06-06 02:32 | NUR ---
COMFORT CARE REPORTS DYSPNEA, ELEVATED HOB WHICH APPEARED TO HELP. SATS RUNNING IN THE 90S. APPLIED TOPICAL ASPERCREME TO BACK TO ASSIST WITH DISCOMFORT. PT CURRENTLY RESTING IN BED. NO ACUTE DISTRESS AT THIS TIME. BED IN LOWEST POSITON WITH CALL LIGHT IN REACH. WILL CONTINUE TO MONITOR.
--- NOTE | 2020-06-06 04:34 | NUR ---
COMFORT CARE APPEARS TO BE RESTING COMFORTABLY IN BED. NO ACUTE DISTRESS AT THIS TIME. BED IN LOWEST POSITION WITH CALL LIGHT IN REACH. WILL CONTINUE TO MONITOR.
--- NOTE | 2020-06-06 04:35 | NUR ---
COMFORT CARE APPEARS TO BE RESTING COMORTABLY AT THIS TIME. NO ACUTE DISTRESS NOTED. BED IN LOWEST POSITION WITH CALL LIGHT IN REACH.
--- NOTE | 2020-06-06 04:40 | NUR ---
SNOW REMOVAL/PLOWING SUMMARY REPORTS OF PAIN T/O NIGHT THAT WAS TREATED PER EMAR WELL REPOSITIONING AND ASPERCREME. SOME SOB THAT WAS ALLEVIATED BY RAISING HEAD OF BED AND PAIN MEDICATION. APPEARED TO SLEEP MOST OF THE NIGHT. NO ACUTE DISTRESS NOTED. WILL CONTINUE TO MONITOR AND REPORT TO ONCOMING RN.
--- NOTE | 2020-06-06 06:05 | NUR ---
COMFORT CARE APPEARS TO BE RESTING COMFORTABLY IN BED AT THIS TIME. PREVIOUSLY UP TO BS WITH 1 PERSON ASSIST. REPOSITIONED FOR COMFORT. NO ACUTE DISTRESS AT THIS TIME. BED IN LOWEST POSITION WITH CALL LIGHT IN REACH. WILL CONTINUE TO MONITOR AND REPORT TO ONCOMING RN.
--- NOTE | 2020-06-06 17:03 | NUR ---
Pt resting in bed upon arrival. Pt reports 2/10 pain in her upper abdomen area. Pt denies dyspnea at this time. Listened as Pt reports still being agreeable with wanting help with placement with hospice. Pt reports no other concerns at this time. Spoke with Bedside SCOTTIE Angelo and discussed case. Palliative Care will remain available.
--- NOTE | 2020-06-07 04:51 | NUR ---
SUMMARY NO NEW ISSUES NOTED. PT PAIN TX PER EMAR. PT HAS SLEPT WELL AND IS CURRENTLY SLEEPING. CALL LIGHT IN REACH.
--- NOTE | 2020-06-07 17:11 | NUR ---
Spiritual care note: Liseth was awake, but appears quite frail. she told me she is hoping to find "a place to live." She also states that, "If the good Lord is trying to take me home, I'm ready." She is very [place] so conversation is difficult. Provided prayer and assurance of care. I will remain available.
--- NOTE | 2020-06-07 18:39 | NUR ---
PT IS SLEEPING AT THIS TIME, APPEARS TO BE COMFORTABLE
--- NOTE | 2020-06-07 18:40 | NUR ---
PT MEDICATED FOR MILD NOGUERA, PT APPEARS TO BE BREATHING EASILY AT REST ON O2 @ 2L/MIN, PT APPEARS COMFORTABLE IS A/O, CALL LIGHT IN REACH
--- NOTE | 2020-06-07 19:19 | NUR ---
BM IT WAS REPORTED BY THE CARTOGRAPHIC DESIGNER THAT THE PATIENT NOGUERA A BM TODAY
--- NOTE | 2020-06-08 04:13 | NUR ---
FOIL CUTTER SUMMARY Liseth slept well overnight between getting oob with staff to the BSC. She also received Tylenol and then Roxynol for upper back and shoulder pain. Towards midnight, a Kpad was placed which added comfort to Liseth's upper back. OOB with minimal stand by assist to bedside commode
--- NOTE | 2020-06-08 18:47 | NUR ---
SHIFT SUMMARY- PT IS A/O, PLESANT AND COOPERATIVE. SHE SLEPT INTERMITENTLY THROUGHOUT THE DAY. SHE IS EATING AND DRINKING WELL. SHE HAD A BM.
--- NOTE | 2020-06-09 06:39 | NUR ---
SHIFT SUMMARY PT IS AN 84 Y/O FEMALE, ADMITTED FOR ACS, CURRENTLY ON COMFORT CARE. SHE IS A&O X 4, THOUGH VERY [place], AND A SBA TO THE BSC. SHE WAS MEDICATED ONCE FOR BACK PAIN WITH PRN TYLENOL. NO COMPLAINTS OF NAUSEA OR SOB. PT SLEPT WELL THROUGH THE NIGHT. NO ACUTE CHANGES IN PT CONDITION NOTED. WILL CONTINUE AND TREAT PER EMAR UNTIL HAND OFF TO DAY SHIFT RN.
--- NOTE | 2020-06-09 07:56 | NUR ---
COMFORT CARE NOTE- PT SLEEPING AT THE TIME OF REPORT AND ASSESSMENT. PT RESP E/U WITH NO S&S OF DISTRESS. PT CURLED UP ON HER RIGHT SIDE SLEEPING. UNGA, SO DID NOT WAKE TO STAFF VOICES. WILL CTM.
--- NOTE | 2020-06-09 09:21 | NUR ---
MEDICATIONS GIVEN WHOLE IN APPLE SAUCE ONE AT A TIME. PT SWALLOWED WITHOUT DIFFICULTY. DENIES NEED FO PAIN MEDICATION AT THIS TIME WILL CTM.
--- NOTE | 2020-06-09 12:37 | NUR ---
PT HAD NO C/O PAIN, WHEN ROUNDED ON HER SHE STATED HER BACK WAS HURTING AND REQUESTED TYLENOL. MEDICATED WITH PRN TYLENOL. SPOKE TO DR ESTEVES NO IV ACCESS ORDER RECIEVED, WELL OK FOR THE PT TO HAVE ICE CHIPS, AND TYLENOL Q4 OK, DUPLICATE ORDER FOR TYLENOL Q6 DC'D.
--- NOTE | 2020-06-09 12:40 | NUR ---
BILATERAL UPPER ARM POWER GLIDES DC'D PER NO IV ACCESS ORDER. PT COMFORT CARE AND HAS NO IV MEDICATIONS IN EMAR.
--- NOTE | 2020-06-09 14:40 | NUR ---
COMFORT CARE NOTE- ON NORMAL ROUNDS PT HAD REQUESTED TYLENOL FOR MILD LOW BACK PAIN; HOWEVER PT HAD RECENTLY RECIEVED TYLENOL. SPOKE TO HER ABOUT THE ALTERNATIVE MEDICATION ROXANOL IF SHE WANTED SOMETHING ELSE. PT DECLINED. ONCE PT WAS REPOSITIONED AND BACK IN BED SHE BEGAN LOUDLY ASKING "GOD, PLEASE TAKE ME NOW. I JUST CAN'T STAND THE PAIN!" PROVIDED THE PT WITH A DOSE OF 5MG ROXANOL WHICH SHE WAS WILLING TO TAKE.
--- NOTE | 2020-06-09 16:15 | NUR ---
PT PAIN SEEMS WELL MANAGED AT THIS TIME. NO C/O PAIN AT THE TIME OF ASSESSMENT. CALLED PALLIATIVE CARE RN REGUARDING THE PT COMMUNICATION OF PAIN TO TRY TO AVOID HER PAIN BEING BAD ENOUGH FOR HER TO BE IN TEARS.
--- NOTE | 2020-06-09 18:23 | NUR ---
SHIFT SUMMARY- PT ALERT TO SELF. PT STATED MINOR PAIN EARLIER IN THE SHIFT NOT RELIEVED BY TYLENOL. MEDICATED PRN WITH 5 MG ROXANOL AND THE PT WAS SITTING UP IN BED CALL LIGHT IN REACH, AWAKE AND STATED HER PAIN IS "MUCH BETTER" PT APPEARS RELAXED AND RESP ARE E/U PT ON O2 AT THIS TIME, O2 TEND TO COME OFF WHEN SHE IS SLEEPING. PT IS VERY MOBILE IN THE BED AND REPOSITIONS HERSELF FREQUENTLY. MEPILEX ON THE BONY PROMINANCE OF HER SPINE TO PREVENT SKIN BREAKDOWN. NO IV ACCESS ORDER RECIEVED TODAY, BILATERAL UPPER ARM POWER GLIDES WERE DC'D AT THE DR ORDER AND THE PT REQUEST. PT HAS ASP PRECAUTIONS IN PLACE. SHE ASKED THE DR FOR ICE CHIPS AND THE DOCTOR SAID ICE CHIPS WERE OK SHE IS COMFORT CARE SHE CAN HAVE WHAT SHE LIKES.
--- NOTE | 2020-06-09 18:57 | NUR ---
Notified by nursing pt having increasing symptoms and struggling with medications. Review of startegies of care and medication needs and patients air hunger.
--- NOTE | 2020-06-10 05:34 | NUR ---
COTTON BALL BAGGER SUMMARY PT SLEPT ON AND OFF THROUGH OUT THE NIGHT COMPLAINING OF PAIN ACROSS HER CHEST SO 10MG ROXANOL WAS GIVEN AND PT SLEPT FOR A FEW HOURS. PT DOES NOT COMMUNICATE HER NEEDS EFFECTIVELY UNLESS ASKED IF SHE IS IN PAIN OR IF SHE NEEDS TO GO TO THE BATHROOM. PT STOOD TWICE TO USE THE BSC AND HER LEG STRENGTH APPEARS TO BE FAIRLY STRONG. PT IS CURRENTLY RESTING W CALL LIGHT WITHIN REACH.
--- NOTE | 2020-06-10 07:19 | NUR ---
COMFORT CARE/ASSUMED CARE OF PT- EDSIDE REPORT COMPLETED WITH NIGHT RN. PT DENIES THE NEED FOR PAIN MEDICATION NO S&S OF PAIN, DISTRESS OF DISCOMFORT. PT ALERT SITTING UP IN BED DECLINES BLANKETS AT THIS TIME. PER REPORT SHE DID RECIEVE 10MG ROXINOL LAST NIGHT FOR BACK PAIN, IT WORKED WELL AND THE PT WAS ABLE TO REST COMFORTABLY. PT APPEARS COMFORTABLE AND DENIES ANY NEEDS AT THIS TIME. WILL CTM.
--- NOTE | 2020-06-10 09:45 | NUR ---
PT ALERT AND TALKING TO STAFF DENIES THE NEED FOR PAIN MANAGEMENT AT THIS TIME. CALLED [facility] BECAUSE PT EXPRESSED CONCERN THAT HER MAIL IS NOT BEING PICKED UP AND SHE WOULD LIKE SOMEONE TO PUT A HOLD ON HER MAIL UNTIL SHE CAN PICK IT UP. LEFT A MESSAGE WITH [facility] TO SEE IF WE CAN ALLEVIATE THE PT CONCERN.
--- NOTE | 2020-06-10 12:59 | NUR ---
PT ASSISTED TO BSC. DENIES NEED FOR PAIN MEDICATION WILL CTM.
--- NOTE | 2020-06-10 15:00 | NUR ---
COMFORT CARE NOTE- PT APPEARS TO BE RESTING COMFORTABLY. RESP E/U NO S&S OF PAIN OR DISTRESS. WILL CONT TO MONITOR.
--- NOTE | 2020-06-10 16:00 | NUR ---
COMFORT CARE NOTE- PT STILL DENIES THE NEED FOR PAIN MEDICATION AT THIS TIME SHE APPEARS TO BE COMFORTABLE LAYING IN BED WITH THE CALL LIGHT IN REACH. WILL CTM.
--- NOTE | 2020-06-10 16:18 | NUR ---
Pt resting in bed upon arrival. Pt denies pain at this time. Pt appears comfortable with no S/S of distress at this time. Pt reports no concerns at this time. Spoke with Bedside RN Lyric and discussed case. Palliative Care will remain available.
--- NOTE | 2020-06-10 17:15 | NUR ---
COMFORT CARE NOTE- PT STATED MILD PAIN ACROSS HER CHEST AND A LITTLE IN HER LOW BACK, SHE RATES AT A 2/10. PT REQUESTED 1 TYLENOL, REMINDED HER THAT 2 WERE NOT SUFFICIENT YESTERDAY AND SHE DECIDED SHE WANTED 2. (THIS IS THE ORDERED DOSE).
--- NOTE | 2020-06-10 17:34 | NUR ---
SHIFT SUMMARY- PT ALERT AND ORIENTED TO SELF, HAS BEEN AWAKE MORE TODAY THAN YESTERDAY AND HAS DENIED ANY PAIN UNTIL THE END OF THE DAY. PT STATES THE TYLENOL WAS EFFECTIVE, SHE AGAIN SEEMS TO BE COMFORTABLE IN THE BED, SHE DECLINES ANY BLANKETS STATING SHE IS COMFORTABLE HOW SHE IS. WILL CTM.
--- NOTE | 2020-06-11 04:54 | NUR ---
SHIFT SUMMARY PATIENT ALERT AND ORIENTED, HAD MINIMAL NEEDS AND SLEPT WELL OVERNIGHT. PATIENT MEDICATED TWICE PER EMAR FOR PAIN. BED IN LOWEST POSITION WITH WHEELS LOCKED. CALL LIGHT WITHIN REACH. REPORT GIVEN TO ONCOMING RN.
--- NOTE | 2020-06-11 07:25 | NUR ---
ASSUMED CARE OF PT- BEDSIDE REPORT COMPLETED WITH NIGHT RN. PT SLEEPING AND APPEARS TO BE COMFORTABLE AT THIS TIME. NO S&S OF PAIN OR DISTRESS RESP SLOW DEEP (FOR THIS PT) E/U ON 2L VIA NC. WILL CTM.
--- NOTE | 2020-06-11 09:00 | NUR ---
PT SLEEPING NO S&s of dist ess
--- NOTE | 2020-06-11 09:05 | NUR ---
Pt resting in bed upon arrival eating her breakfast. Assisted Pt to [facility] per her request. Assisted Pt back to bed. Pt denies pain and dyspnea at this time. Pt appears comfortable with no S/S of distress at this time. Palliative Care will remain available.
--- NOTE | 2020-06-11 10:00 | NUR ---
PT STATED PAIN ACROSS HER CHEST MEDICATED WITH TYLENOL AT HER REQUEST. PT DENIED NEEDING ANYTHING STRONGER.
--- NOTE | 2020-06-11 13:00 | NUR ---
PT IN BED RESTING AT THIS TIME NO S&S OF DISTRESS RESP E/U.
--- NOTE | 2020-06-11 14:30 | NUR ---
COMFORT CARE NOTE- PT RECIEVED ANXIETY MED AT 1330. UPON THIS RN RETURN THE PT WAS IN BED AND APPEARED RELAXED AND COMFORTABLE SLEEPING.
--- NOTE | 2020-06-11 16:12 | NUR ---
COMFORT CARE NOTE- AGAIN PT RESTING, APPEARS COMFORTABLE RESP E/U NO S&S OF DISTRESS WILL CTM.
--- NOTE | 2020-06-11 16:59 | NUR ---
SHIFT SUMMARY- PT HAS HAD NO ACUTE CHANGE T/O THE DAY. C/O BACK PAIN MEDICATED WITH TYLENOL. C/O FEELING ANXIOUS MEDICATED WITH ATIVAN. PT APPEARS TO BE COMFORTABLY RESTING IN HER BED, EYES CLOSED RESP E/U ON 2L VIA NC. NO S&S OF DISTRESS NOTED AT THIS TIME WILL CTM AND PASS ON IN BEDSIDE REPORT TO NIGHT RN.
--- NOTE | 2020-06-11 18:07 | NUR ---
COMFORT CARE NOTE- PT SITTING UP IN BED CALL LIGHT INREACH DINNER TRAY AT THE READY, SHE APPEARS ALERT AND DENIES THE NEED FOR PAIN MEDICATION AT THIS TIME. WILL CTM AND PASS ON IN REPORT TO NIGHT RN.
--- NOTE | 2020-06-12 04:19 | NUR ---
SUMMARY PT PAIN MANAGED PER EMAR. PT HAS SLEPT OFF AND ON. PT CURRENTLY SLEEPING IN NO DISTRESS. CALL LIGHT IN REACH.
--- NOTE | 2020-06-12 11:24 | NUR ---
0800 NOTE SHE HAS SOME PAIN ACROSS HER CHEST AND IN HER BACK. SHE REQUESTED TYLENOL. NO OTHER COMPLAINTS. SHE APPEARS FRAGILE, VERY THIN BUT WITH A DISTENDED ABD. O2 2L. SKIN PALE/SALLOW. MULTIPLE SCABS SEEN ON ARMS. SHE IS HUNGRY FOR BREAKFAST.
--- NOTE | 2020-06-12 11:27 | NUR ---
1000 NOTE ASLEEP WITH THE OXYGEN CANNULA IN HER MOUTH. SHE LOOKS COMFORTABLE.
--- NOTE | 2020-06-12 13:22 | NUR ---
1200 NOTE WAKING UP FOR LUNCH. MADE ROUNDS. NO CHANGES.
--- NOTE | 2020-06-12 15:55 | NUR ---
1400 NOTE SHE ATE 50% OF LUNCH. SHE IS BACK ASLEEP WITH O2 ON AND LOOKS COMFORTABLE. RESPIRATIONS ARE REGULAR AND UNLABORED.
--- NOTE | 2020-06-12 15:56 | NUR ---
COMFORT NOTE SHE IS SLEEPING COMFORTABLY. SHE JUST HAD A NEB TX.
--- NOTE | 2020-06-12 18:04 | NUR ---
SHE HAS BEEN MEDICATED WITH TYLENOL X2 TODAY. SHE HAS NOT WANTED ANY MORPHINE. SHE HAS SLEPT AND EATEN. O2 2L ALL DAY. SHE HAS BEEN CHANGED FOR INCONTINENT URINE T/O THE DAY. SHE HAS BEEN GENERALLY COMFORTABLE.
--- NOTE | 2020-06-13 05:48 | NUR ---
SHIFT SUMMARY NO ACUTE CHANGES THIS SHIFT, MEDICATED 1X FOR BACK PAIN AND APPLIED ASPERCREAM PT SLEPT AFTER ADMIN THEN SLEPT ON & OFF T/O THE NIGHT, HUGHES, ALERT & ALBE TO MAKE NEEDS KNOWN, SLEEPING AT THIS TIME, CALL LIGHT IN REACH, WILL CONT TO MONITOR UNTIL REPORT GIVEN TO DAY RN.
--- NOTE | 2020-06-13 10:37 | NUR ---
0800 NOTE SHE JUST GOT UP TO THE BSC WITH SBA TO VOID. U.O. IS CONCENTRATED. WILL MONITOR THAT BECAUSE SHE IS ON DIURETICS. SHE IS READY FOR BREAKFAST.
--- NOTE | 2020-06-13 10:39 | NUR ---
1000 NOTE SHE IS RESTING WITH HER EYES CLOSED AFTER TAKING AM MEDS AND TYLENOL FOR PAIN. SHE DID NOT WANT ANY MORPHINE.
--- NOTE | 2020-06-13 15:28 | NUR ---
Pt resting this monring no complaints. Review of medications and intake and output with nusring. Review of symptoms manamgment. pt can have air hinger and has difficulty decribing it. So fare tylenol is working for her.
--- NOTE | 2020-06-13 16:02 | NUR ---
1200 NOTE SHE WAS UP TO THE BSC AGAIN AND THIS TIME HAD A HARD FORMED BM. U.O. DARK ROME. NO NEW COMPLAINTS.
--- NOTE | 2020-06-13 16:03 | NUR ---
1400 NOTE SHE IS RESTING COMFORTABLY AFTER A LITTLE LUNCH.
--- NOTE | 2020-06-13 16:04 | NUR ---
1600 NOTE SHE IS LYING ON HER R SIDE. SHE TAKES HER O2 OFF AND ON SHE PLEASES. NO DISTRESS.
--- NOTE | 2020-06-13 18:43 | NUR ---
AT 1800 SHE APPEARED COMFORTABLE SHE HAS AL DAY. A FEW MINUTES AGO WHEN I LOOKED IN ON HER HER EYES WERE WIDE OPEN WITH A FRANTIC LOOK. SHE DID NOT MEET MY GAZE BUT WHEN I ASKED HER IF IT WAS A LITTLE HARD TO BREATHE, SHE NODDED YES. I THEN GAVE HER 10 MG OF ROXANOL. SHE RELAXED HER GAZE AND HER BODY. SHE NOW NODS YES WHEN I ASKED IF SHE IS A LITTLE BETTER.
--- NOTE | 2020-06-13 19:02 | NUR ---
ATIVAN ALSO GIVEN. SHE IS AWARE ENOUGH NOW TO SWALLOW A PILL IN APPLESAUCE. BED ALARM ON AT THIS TIME.
--- NOTE | 2020-06-14 05:49 | NUR ---
SHIFT SUMMARY NO ACUTE CHANGES OVERNIGHT. MEDICATED FOR GENERALIZED PAIN PER ORDERS WITH RELIEF. PT IS AWAKE OFF AND ON AND OCCASIOANLLY ANSWERS SOME QUESTIONS. DIFFICULT TO DETERMINE MENTATION. STARES OFF BLANKLY AND APPEARS DISCONNECTED. PT SLEEPS MOST OF THE NIGHT. COMFORT ASSESSED T/O SHIFT. NO FAMILY IN TO SEE PT THIS SHIFT. BED IN LOWEST POSITION, CALL LIGHT WITHIN REACH.
--- NOTE | 2020-06-14 07:23 | NUR ---
ASSUMED CARE OF PT- BEDSIDE REPORT COMPETED WITH NIGHT RN KAYLAH. PER REPORT PT HAS BEEN NON-COMMUNICATIVE T/O THE NIGHT, WHEN SHE IS AWAKE SHE JUST STARES OFF, POSSIBLY D/T POOR HEARING. PT SLEEPING AT THE TIME OF REPORT. SHE DOES NOT APPEAR TO HAVE ANY DISCOMFORT AT THIS TIME. WILL CTM.
--- NOTE | 2020-06-14 09:00 | NUR ---
PT SEEMS MORE LETHARGIC TODAY, EYES OPEN BUT NOT SEEING, REPLACED BATTERY IN HEARING AID AND PLACED ON THE PT, SHE GAVE ACKNOWLEDGEMENTS AFTER THAT BUT MIMALISTIC AND DIFFICULT TO MAINTAIN CONCIOUSNESS. POSSIBLE CHANGE IN STSTUS. PT ON COMFORT CARE, MAY BE TRANSITIONING. WILL CTM AND KEEP COMFORTABLE NEEDED.
--- NOTE | 2020-06-14 10:21 | NUR ---
Comfort Care Visit Pt resting in bed and appears lethargic. Pt's voice quiet and appears to struggle with keeping her eyes open. Pt reports 4 10/07/09 generalized pain. Pt requests medication for pain. Discussed case with Bedside RN Lyric. Lyric will offer pain medication. Lyric reports Pt has refused her breakfast and is not taking in fluid today. Pt may be transitioning. Palliative Care will remain available.
--- NOTE | 2020-06-14 10:32 | NUR ---
CALLED DR SANTANA- PT UNABLE TO WAKE FULLY TO PREVENT ASPIRATION UNABLE TO TAKE ORAL MEDS TODAY. DR JIMENEZ. PT RECIEVED SL ROXANOL FOR PAIN. D/T HER BEING VERY LETHARGIC UNABLE TO SWALLOW PILLS TODAY.
--- NOTE | 2020-06-14 11:00 | NUR ---
COMFORT CARE NOTE- PT STATED PAIN TO THE PALLIATIVE CARE RN MEDICATED WITH 5MG ROXANOL, PT TOO LETHARGIC TO SWALLOW PILLS. PT PAIN SEEMS WELL MANAGED AT THIS TIME.
--- NOTE | 2020-06-14 13:00 | NUR ---
COMFORT CARE NOTE- PT SLEEPING COMFORTABLY, EYES CLOSED FACE RELAXED NO S&S OF DISTRESS. DID NOT WAKE FOR ORAL CARE AT THIS TIME IT WAS DONE ON THE PREVIOUS ASSESSMENT.
--- NOTE | 2020-06-14 15:04 | NUR ---
PT APPEARS TO BE RESTING COMFORTABLY AT THIS TIME. RECIEVED A FULL BED BATH FROM STAFF. APPEARS TO BE SLEEPING RESP EVEN BUT A LITTLE ACCESSORY MUSCLE USE NOTED, WILL TRY POSITION CHANGES TO SEE IF THAT HELPS. MAY NEED MEDICATION FOR AIR HUNGER. WILL CTM.
--- NOTE | 2020-06-14 19:30 | NUR ---
SHIFT SUMMARY- PT HAS NOT BEEN RESPONDING VERBALLY AT ALL T/O THE DAY. MAYBE A SINGLE WORD YES OR NO OR HI. PT FREQUENTLY PUSHED HER CALL LIGHT BUT WAS COMPLETELY ASLEEP WHEN STAFF WOULD ARRIVE. PASSED ALL ON IN BEDSIDE REPORT TO NIGHT RN JAVON AND NILESH. NO S&S OF PAIN OR DISTRESS AT THE TIME OF REPORT.
--- NOTE | 2020-06-15 04:23 | NUR ---
PLAY THERAPIST SUMMARY PT BEGAN SHIFT W C/O PAIN AND WAS MEDICATED PER EMAR. PT'S PAIN SEEMED TO PROGRESS AND WAS MEDICATED AGAIN PER EMAR. PATIENT DRANK THICKENED APPLEJUICE AND THE SLEPT FOR MOST OF THE SHIFT. PT IS CURRENTLY RESTING COMFORTABLY WITH CALL LIGHT WITHIN REACH.
--- NOTE | 2020-06-15 14:00 | NUR ---
Spiritual care visit conducted. Patient is lying on her side and has her eyes open. Patient does not answer any of my questions until I asked if I could say a prayer for her, to which she nodded her head affirmingly. I gladly provided prayer. Patient closed her eyes during the prayer and opened them at the conclusion and looked at me and nodded as if to agree with the prayer. Patient did not respond to any other question she simply closed her eyes and appeared to fall asleep. I will continue to remain available to patient and family.
--- NOTE | 2020-06-15 15:00 | NUR ---
SPOKE TO SPIRITUAL CARE ABOUT PT DECLINE RECENTLY AND REQESTED THEY VISIT THE PT SHE MAY BENIFIT FROM A LITTLE PRAYER. PT HAS BEEN SLEEPING MOST OF THE DAY WAKING ONCE AND INDICATING PAIN. PT HAS REFUSED ALL MEALS AND HAS NOT HAD ANY PO INTAKE T/O THE DAY. PT NOW INCONTINENT VOIDS ATTENDS IN PLACE. Q2 TURN, HOWEVER THE PT FREQUENTLY REPOSITIONS HERSELF AFTER BEING POSITIONED. 3 SIDE RAILS AND BED ALARM FOR SAFETY.
--- NOTE | 2020-06-15 16:00 | NUR ---
pt comfortable review of changes and needs with nursing.
--- NOTE | 2020-06-15 18:43 | NUR ---
SHIFT SUMMARY- PT NON VERBAL TODAY, EARLY IN THE SHIFT SHE WAS ABLE TO INDICATE HER PAIN. SHE HAS APPEARED COMFORTABLE T/O THE DAY. PT REPOSITIONED Q2 HOURS. PT REMOVED HER O2 AND REFUSED FOR STAFF TO PLACE IT ON HER AGAIN THIS EVENING. PT HAS BEEN VOIDING INCONTINENT T/O THE SHIFT. LAST REPOSITION WAS AT 1845.
--- NOTE | 2020-06-16 04:51 | NUR ---
BODY WORK AUTO TRIMMER SUMMARY PT APPEARS TO HAVE SIGNIFICANT DECLINE IN MENTATION IN THE LAST 24 HRS SHE IS MUCH MORE RESTLESS AND UNABLE TO COMMUNICATE HER NEEDS TONIGHT. PT CONTINUES TO GRAB AT HER GOWN, SIDE OF THE BED, AND STAFF WHEN YOU ARE NEAR HER BUT SHE DOES NOT RESPOND VERBALLY. PT WAS TREATED FOR PAIN SHE APPEARED TO BE VERY UNCOMFORTABLE BUT COULD NOT VERBALIZE HER PAIN. PT SLEPT OFF AND ON THROUGHT THE NIGHT. PT IS NOT ABLE TO MAKE HER NEEDS KNOWN AND VERY DISORIENTED. W CONTINUE TO ASSESS FOR PAIN AND DISCOMFORT.
--- NOTE | 2020-06-16 07:04 | NUR ---
ASSUMED CARE OF PT- BEDSIDE REPORT COMPLETED. PT SLEEPING BUT WOKE TO TELL STAFF SHE CAN'T HEAR. PLACED A HEARING AID IN HER EAR AND SHE SAID "I CAN'T HEAR!" STAFF SAID "I KNOW" (IN A NORMAL TONE) AND SHE NODED IN ACKNOWLEDGEMENT. PT REMAINS INCONTINENT. MEDICATED LAST NIGHT WITH ATIVAN AND ROXANOL 20MG D/T ANXIETY. PER REPORT PT WAS THRASHING AND GRABBING AT OBJECTS. THIS MORNING SHE APPEARS COMFORTABLE NO S&S OF DISTRESS NOTED AT THIS TIME.
--- NOTE | 2020-06-16 07:33 | NUR ---
PT HAS BEEN PULLING AT HER EARRINGS, REMOVED AND PLACED IN A LABLED CUP WITH HER HEARING AIDS TO PREVENT HER FROM RIPPING THEM OUT OF HER EARS.
--- NOTE | 2020-06-16 09:23 | NUR ---
COMFORT CARE NOTE- PT RESTING APPEARS COMFORTABLE PAIN MEDS OFFERED AND DECLINED AT THIS TIME WILL CTM.
--- NOTE | 2020-06-16 12:07 | NUR ---
Spiritual care visit conducted. Patient is lying on her side but alert. Patient is [place] and not amenable to wearing her hearing aids so conversation is strained. I told patient that I brought my guitar in and wondered if she would be able to hear me play. I played a couple of songs and patient stated that she enjoyed what she heard but she would need me to play louder, I played louder for a couple more songs and patinet stated that she could only hear at certain points in the song but appreciated me trying. Patient did say that she would be agreeable to prayer. I gladly provided prayer and I yelled as I did so. I asked patient if she could hear the prayer and she said most of it and she was tearful. I will continue to try to find ways to help patient deal with the emotional and spiritual issues that accompany the health/life struggles she is facing.
--- NOTE | 2020-06-16 15:00 | NUR ---
PT CONFUSED AND ANXIOUS, SEEMS TO HAVE MORE AIR HUNGER GOING ON AT THIS TIME, PALLIATIVE CARE RN ALE AGREED PT MEDICATED WITH 10MG ROXANOL.
--- NOTE | 2020-06-16 16:08 | NUR ---
ROAXNOL SEEMED TO RELAX HER, PT NO LONGER ANXIOUS OR AIR HUNGRY AT THIS TIME WILL CTM.
--- NOTE | 2020-06-16 18:00 | NUR ---
SPOKE TO PALLIATIVE CARE RN AND SPIRITUAL CARE TO ASSIST IN PT COMFORT MANAGEMENT.
--- NOTE | 2020-06-16 18:13 | NUR ---
Pt resting most of the day. So aggitation with increased repitory distress. roxinaol hleping pt apprears to be progressing.
--- NOTE | 2020-06-16 19:56 | NUR ---
SHIFT SUMMARY- PT NOT ALERT AND ORIENTED AT ALL. SHE WILL RESPOND OCCASSIONALLY. AT ONE POINT TODAY SHE SEEMED PANICKED AND WAS ASKING FOR WATER BUT DIDN'T WANT THE WATER SHE WOULD PUSH THE CALL LIGHT WHILE STAFF WERE OFFERING WATER AND SAY WATER. GOT 20MG ROXANOL FOR HER AND SHOWED IT TO HER SHE LOOKED RELIEVED AND SAID WATER. PT WAS MEDICATED TWICE FOR PAIN AND AIR HUNGER THIS SHIFT. AT SHIFT CHANGE SHE APPEARS TO BE SLEEPING COMFORTABLY NO S&S OF DISTRESS AT THIS TIME SHE DID WAKE AND ASK FOR WATER, BUT WENT RIGHT BACK TO SLEEP. CALL LIGHT IN REACH.
--- NOTE | 2020-06-16 20:13 | NUR ---
patient mumbling and appears somewhat uncomfortable at change of shift. Repositioned her and sat at bedside with her until she was able to fall back to sleep. will continue close montoring
--- NOTE | 2020-06-17 12:04 | NUR ---
PT RESTING QUITLY. ORAL CARE PERFORMED
--- NOTE | 2020-06-17 12:05 | NUR ---
ICE CHIPS GIVEN
--- NOTE | 2020-06-17 12:06 | NUR ---
PT WIDE AWAKE, RESTING QUIETLY, ORAL CARE PERFORMED. PALLATIVE CARE NURSE PRESENT AND CARE PLAN REVIEWED
--- NOTE | 2020-06-17 14:36 | NUR ---
Pt wakes at time but less and less responsive with slowing repirations. no gimace or s/s of airhunger or pain. Will continue theraputic visits and support.
--- NOTE | 2020-06-17 15:09 | NUR ---
PT SLEEPING, ORAL CARE PERFORMED
--- NOTE | 2020-06-17 15:13 | NUR ---
SHIFT SUMMARY PT IS NOT ALERT OR ORIENTED. PT OCCASIONALLY OPENED HER EYES, OFFERED WATER THROUGH OUT THE SHIFT. REPOSITONED AND PERFORMED ORAL CARE 2QHRS. PT DIDN'T APPEAR TO HAVE PAIN OR AIR HUNGER THIS SHIFT. PT RESTING MOST OF THIS SHIFT. CALL LIGHT WITHIN REACH.
--- NOTE | 2020-06-17 18:33 | NUR ---
ORAL CARE PERFORMED
--- NOTE | 2020-06-17 18:36 | NUR ---
HOOD FITTER REPORTS PT EATING ICE WHEN REPOSTIONED.
--- NOTE | 2020-06-17 18:39 | NUR ---
PT REQUESTING WATER, PT JAMAL PAIN AND REQUESTING TO TAKE OFF BLANKETS.
--- NOTE | 2020-06-18 06:22 | NUR ---
STRATEGIC BUSINESS DEVELOPMENT SUMMARY patient remained quiet last night. waking each time she received care to insist on more water. Liseth needs to upright at 90 degrees to safely be given teaspoons of cold water. Oral care performed multiple times with wet green toothette with mouth moisture. This is when she wakes and asks for water. No indications she was in pain nor did she display any air hunger overnight. Ball of right beginning to cool and mottle.
--- NOTE | 2020-06-18 18:37 | NUR ---
PT RESTING QUIET IN BED WITH EYES CLOSED, RESP EVEN UNLABORED, APPEARS COMFORTABLE .
--- NOTE | 2020-06-18 18:39 | NUR ---
PT MEDICATED FOR COMFORT, RR 22. PT AGREED TO HAVE ROXINOL FOR GEN BODY DISCOMFORT BEFORE TURNING. ORAL CARE AND THICK LIQ OFFERED. HAD A FEW BITES. DRESSINGS ALL INTACT,
--- NOTE | 2020-06-18 18:40 | NUR ---
SET UP FOR LUNCH, PT HAD BITES OF THICKENED WATER AND ICE AND A FEW BITES OF PUDDING. STATED COMFORT AT THIS TIME
--- NOTE | 2020-06-18 18:42 | NUR ---
MEDICATED FOR GEN DISCOMFORT. ASSISTED WITH ORAL CARE AND ORAL INTAKE, SIPS OF THICK LIQ. TURNED
--- NOTE | 2020-06-18 18:43 | NUR ---
SLEEPING; APPEARS COMFORTABLE
--- NOTE | 2020-06-18 18:44 | NUR ---
MEDICATED TO AID IN COMFORT. ASSISTED WITH DINNER AND PO INTAKE, HAD A FEW BITES OF PUDDING AND THICK WATER. PT GIVEN BED BATH AND LINEN CHANGE.
--- NOTE | 2020-06-18 18:45 | NUR ---
SUMMARY- PT MEDICATED X3 ROXINOL TODAY TO MAINTIAN COMFORT. PT STILL OPENS EYES WITH STIM AND FOCUSES, SAYS 1-2 WORDS. STATES COMFORT WHEN ASKED. RESP EVEN UNLABORED, NO MOISTURE. PT NOT TOO COLD OR HOT. FREQ ORAL CARE AND ASSIST WITH SIPS THICK WATER AND SUPP DRINKS OR PUDDING. NO VOID THIS SHIFT. NO BM. NO FAMILY. WILL REPORT TH ANDRE RUBIN.
--- NOTE | 2020-06-19 06:37 | NUR ---
SHIFT SUMMARY PT IS AN 84 Y/O FEMALE, ADMITTED FOR [facility], CURRENTLY ON COMFORT CARE. PT WAS VERY LETHARGIC DURING THE NIGHT, AND SLEPT WITH NO S/S OF PAIN, NAUSEA OR SOB. PT DID NOT WAKE ENOUGH TO DRINK THICKENED WATER WITHOUT COUGHING. NO OTHER ACUTE CHANGES IN PT CONDITION NOTED. WILL CONTINUE TO MONITOR AND TREAT PER EMAR UNTIL HAND OFF TO DAY SHIFT RN.
--- NOTE | 2020-06-19 11:24 | NUR ---
Pt resting in bed and is requesting water. Provided thickened water by spoon. Pt appears to have weak cough after swallowing. Mild secretions noted. Provided oral care and offered additional thickened water with spoon. Pt coughs again. Pt appears weak and frail. Spoke with Bedside RN Carol and discussed case. Palliative Care will remain available.
--- NOTE | 2020-06-19 15:41 | NUR ---
Spiritual care visit conducted. Patient is lying bed and staring up at the ceiling and does not respond to touch or voice. I place my hand on patient's shoulder and talk loudly into patient's ear (due to her hearing aids sitting on the table). I provide prayer and a calming presence. Patient shows no significant change.
--- NOTE | 2020-06-19 17:21 | NUR ---
SHIFT SUMMARY PT HAS BEEN RESTING COMFORTABLE T/O THE DAY, MINIMAL RESPONSE THIS AM, NONE THIS AFTERNOON, MEDICATED PER DEC FOR PAIN, 1 SM INCONT VOID THIS SHIFT, REPOS Q2 FOR COMFORT, APPEARS COMFORTABLE AT THIS TIME, CALL LIGHT IN REACH, WILL CONT TO MONITOR UNTIL REPORT GIVEN TO NOC RN.
--- NOTE | 2020-06-19 17:23 | NUR ---
Spiritual care note: Liseth was non-responsive to voice or touch. She was breathing with mouth open wide. Breaths even and unlabored. She did not appear in distress. Silent prayer provided at bedside. Spoke words of calm assurance of care and safety. I will remain available.
== END 2020-06-19 17:52 ==
LOC: ER 12:02 → ICUE 15:41 → ERHOLD 15:41 → MEDS 15:41 → ICUE 16:22 → MEDS 06-02 11:30 → DELPENDDIS 06-05 10:22 → ENPENDDIS 06-05 10:22 → MEDS 06-19 17:52
PROVIDERS: Emergency Medicine; Family Medicine; ADMIT Internal Medicine
DX: I21.4 Non-ST elevation (NSTEMI) myocardial infarction (principal); I50.33 Acute on chronic diastolic (congestive) heart failure; C78.7 Secondary malignant neoplasm of liver and intrahepatic bile duct; R64 Cachexia; Z68.1 Body mass index [BMI] 19.9 or less, adult; F17.210 Nicotine dependence, cigarettes, uncomplicated; E78.5 Hyperlipidemia, unspecified; J44.9 Chronic obstructive pulmonary disease, unspecified; I27.20 Pulmonary hypertension, unspecified; I11.0 Hypertensive heart disease with heart failure; Z51.5 Encounter for palliative care; H40.9 Unspecified glaucoma; Z59.0 Homelessness; Z85.3 Personal history of malignant neoplasm of breast
CPT/HCPCS: 36415; 71045; 76700; 80048; 80053; 80061; 83880; 84439; 84443; 84484; 85025; 85610; 85730; 92526; 92610; 93005; 93010; 93306; 94640; 94660; 94760; 96374; 96375; 97110; 97116; 97162; 97166; 97530; 97535; 99285-25; A9270; A9270-GY; C1751; G0480; J1644; J1940; J2405